=== PATIENT | female | born 1980 | race Caucasian/White ===

== ENCOUNTER 2025-03-11 08:42 | Day surgery (SDC) | payer OTHER ==
[2025-03-10 08:38] LABS: MEAN PLATELET VOLUME 7.6 FL (7.4-10.4); RED CELL DISTRIBUTION WIDTH 11.9 % (11.5-14.5)
[2025-03-10 08:51] LABS: APTT 28 SECONDS (22-32); INR 1.0 INR
[2025-03-10 08:52] LABS: CHOL/HDL RATIO 2.0 (0.00-4.99); CREATININE 0.79 MG/DL (0.40-0.90); LDL CHOLESTEROL 39 MG/DL (50-100); TOTAL CARBON DIOXIDE 24.4 MMOL/L (24-32); eGFR 79 ML/MIN
[~2025-03-11] VITALS: Ht 165.1 cm; Wt 79.5 kg
[2025-03-11] VITALS (9 sets, daily range): BP systolic 83–113; BP diastolic 51–79; PULSE 91–109; RESP 16–20; TEMP 97.4; O2SAT 93–98
[2025-03-11] MEDS ORDERED: CHOL25CA2 PO (10:12)
[2025-03-11] MEDS ORDERED: MULT-1085 PO (10:12)
--- NOTE | 2025-03-11 10:17 | ELECTROCARDIOGRAPH REPORT ---
[facility] Test Date: 2025-03-11 Test Time: 10:14:03 Pat Name: CLAY LIU Department: [facility] Patient ID: [id number] Room: Gender: F Logistics/Shipper: TOÑITO : 1980 Requested By: SUE WHITE Order Number: [id number] Reading MD: Dr. TINO Parker Measurements Intervals [place] Rate: 98 P: 38 PA: 150 QRS: 19 QRSD: 85 T: 32 QT: 346 QTc: 442 Interpretive Statements Sinus rhythm Anterior infarct, old Electronically Signed On 03-12-2025 19:12:[address] TINO Parker Please click the below link to view image of tracing.
[2025-03-11] MEDS ORDERED: midazolam 1 mg/ML 2ml injection ONE ×3 (11:20→13:14)
[2025-03-11] MEDS ORDERED: LIDOcaine 1% (10mg/ml) 2ml vial ONE ×2 (11:20→11:37)
[2025-03-11] MEDS ORDERED: verapamil 2.5 mg/ml inj IV ONE (11:20)
[2025-03-11] MEDS ORDERED: fentaNYL/PF 50MCG/1 ML 2ML syringe ONE (11:21)
[2025-03-11] MEDS ORDERED: heparin 1,000unit/ml 10ml vial 10 ML ONE (11:21)
[2025-03-11] MEDS ORDERED: nitroGLYCERIN 500mcg/5mL D5W 5 ML IV ONE (11:25)
--- NOTE | 2025-03-11 14:26 | CARDIAC CATH REPORT ---
Cardiac Cath Report Providers to CC CC: SUE WHITE MD Procedure Comments: 1. Right Heart Catheterization 2. Selective Coronary Angiography 3. Right Brachial vein access 4. Right Radial artery access Brief History/Indications: 44yo woman with severe symptomatic bicuspid AoV stenosis Techniques: After informed consent was obtained, the patient was brought to the cardiac catheterization laboratory and prepped and draped in usual sterile fashion for left heart catheterization and other procedures mentioned above. The right wrist and right AC fossa were anesthetized with 1% Lidocaine. The right AC IV was exchanged over a wire for an 6fr sheath. The right radial artery accessed via the Seldinger technique after which a 6Fr sheath was placed. The Gerlach was advanced via the right AC sheath to the right atrium, the right ventricle, the pulmonary artery, and wedge position. Through the 6Fr right radial sheath, a TIG was used to engage the left coronary artery and the right coronary artery. At the conclusion of the case the sheath was removed and hemostasis obtained with a VascBand for the radial sheath and manual compression for the brachial sheath. Findings Findings: HEMODYNAMICS: RA: 2 mmHg RV: 26/1, RVEDP 4 mmHg PA: 22/11, mPAP 16 mmHg PCWP: 9 mmHg(V-waves to 13mmHg) TP mmHg DP mmHg Ao: 80/50, MAP 62 mmHg HR: 110 bpm LV: Not obtained due to known severe PA Sat: 78% Ao Sat: 95% CO/CI (Estevan): 10/5.4 PVR: 1 CASTANEDA CORONARY ARTERIES: Rt Dominant LMCA: Luminal Irregularities LAD: Luminal Irregularities D1: Luminal Irregularities D2: Luminal Irregularities LCx: Luminal Irregularities OM1: Luminal Irregularities OM2: Luminal Irregularities RCA: Luminal Irregularities PDA: Luminal Irregularities PL: Luminal Irregularities Results Results: 1. No significant obstructive CAD 2. RRA and RBV access, closed with VascBand and manual compression RECOMMENDATIONS: 1. Agree with referral to CT surgery for evaluation of severe, symptomatic aortic stenosis. BARBY WHITE MD Mar 11, 2025 14:26
[2025-03-14 06:15] LABS: ISTAT HGB MIX 5.8 g/dl (12.0-16.0); ISTAT Hct MIX 17 %PCV (35-45); ISTAT O2 SATURATION MIX VENOUS 78 % (60-80); ISTAT SOURCE BLNK
[2025-03-14 06:16] LABS: ISTAT HGB ART 9.2 g/dl (12.0-16.0); ISTAT Hct ART 27 %PCV (35-45); ISTAT O2 SATURATION ARTERIAL 95 % (95-98); ISTAT SOURCE BLNK
== END 2025-03-11 16:00 | disposition home or self-care (01) ==
LOC: SSTAY O 08:42
PROVIDERS: ATTEND Student in an Organized Health Care Education/Training Program
DX: I35.0 Nonrheumatic aortic (valve) stenosis (principal); I25.2 Old myocardial infarction; Z79.899 Other long term (current) drug therapy; Z88.8 Allergy status to other drugs, medicaments and biological substances
CPT/HCPCS: 36415; 80048; 80061; 82803; 83695; 85014; 85025; 85610; 85730; 93005; 93456; 99152; J1644; J2003; J2250; J3010; J3490; J7030; Q0163; Q9967; 99153; A6258; A6402; C1751; C1894

== ENCOUNTER 2025-03-29 09:08 | Emergency (ER) | payer OTHER ==
[~2025-03-29] VITALS: Ht 165.1 cm; Wt 78.5 kg
[~2025-03-29 09:08] MED LIST: CHOL25CA2 PO; MULT-1085 PO
[2025-03-29 09:22] VITALS: TEMP 97.7
--- NOTE | 2025-03-29 09:38 | ELECTROCARDIOGRAPH REPORT ---
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
[2025-03-29 09:47] LABS: MEAN PLATELET VOLUME 7.6 FL (7.4-10.4); RED CELL DISTRIBUTION WIDTH 12.0 % (11.5-14.5)
--- NOTE | 2025-03-29 09:52 | RADIOLOGY REPORT ---
DI CHEST,SINGLE VIEW, HISTORY: CP COMPARISON: None None TECHNICAL DATA: 1 view of the chest was obtained. FINDINGS: Lines and tubes: None Cardiomediastinal silhouette: normal Pulmonary vasculature: normal Lung expansion: normal Lung airspace: normal Lung interstitium: normal Pleura: normal Pneumothorax: no Bones: Unremarkable Other: no IMPRESSION: No acute intrathoracic abnormality.
[2025-03-29] MEDS: diazepam inj 5 MG/ML inj. IV ONE (09:53)
[2025-03-29 10:00] LABS: CREATININE 0.65 MG/DL (0.40-0.90); PRO BRAIN NATRIURETIC PEPTIDE 1872 PG/ML (0-125); TOTAL CARBON DIOXIDE 23.7 MMOL/L (24-32); eCRCL 79 ML/MIN; eGFR > 90 ML/MIN
--- NOTE | 2025-03-29 10:00 | Physician Documentation ---
History of Present Illness ~ Chief Complaint: Rapid Heartbeat Stated Complaint: IRREG HEART RATE Time Seen by MD: 09:22 OK to notify your PCP?: Yes Source: patient Mode of Arrival: POV Exam Limitations: no limitations HPI Chief Complaint: Anxiety, heart racing Caveat: None Independent Historians: None History of Present Illness: Patient is a 44-year-old woman followed by Dr. Carpenter for aortic stenosis. Patient is scheduled to see a Cardiothoracic surgeon next week for evaluation. Patient comes in complaining of feeling anxious, dizzy/lightheaded in her heart racing for approximately one week. Patient also feels short of breath. Patient denies any chest pain. Patient can not really tell me if this has happened before. Review of systems: All systems were reviewed and are negative except for what is indicated in the history of present illness. Past Medical History: Aortic stenosis, anxiety Past Surgical History: None Social History: No tobacco use, no alcohol use, no drug use Medications: Reviewed as documented Nursing Notes Allergies: Reviewed as documented in Nursing Notes Medication Reconciliation Allergies: Coded Allergies: prochlorperazine (Verified Allergy, Unknown, tongue out of mouth, 03/29/25) Scheduled Cholecalciferol (Vitamin D3) (Vitamin D3), 1 CAP PO DAILY, (Reported) Multivitamin (Multi Vitamin Daily), 1 TAB PO DAILY, (Reported) Review of Systems All Other Systems at this time: Reviewed and Negative ROS Patient denies any other acute symptoms other than above. All other systems are negative Physical Exam Vital Signs: RN Vital Signs have been reviewed: Yes, Temperature: 97.7, Source: Oral, Heart Rate: 122, Respiratory Rate: 17, BP: 121/76, Pulse Oximetry: 99, Weight: 78.500 Oxygen Flow Rate: 0 Pulse Oximetry Reflects: adequate oxygenation Physical Exam General Appearance: Mild distress HEENT: Normal OP, moist oral mucosa, PERRL, EOMI Neck: supple, normal ROM, trachea midline Pulmonary: No respiratory distress, CTA, BS equal Cardiac: RRR, no murmur, rub or gallop, GI: nondistended, soft, nontender, normal bowel sounds, no guarding, no rebound Extremities: normal ROM, no swelling, non-tender Skin: intact, dry, warm, no rashes Neuro: AAOx3, speech is clear, no focal motor weakness Psych: normal affect, good eye contact, no apparent hallucination, normal speech Progress Results/Orders Results/Orders Orders - ADALBERTO ELIZABETH MD Saline Lock (03/29/25 09:23) Oxygen (03/29/25 09:23) Chest,Single View (03/29/25 09:23) Monitor (03/29/25 09:23) Completed Orders - ADALBERTO ELIZABETH MD Cbc/Diff (03/29/25 09:23) BMP (03/29/25 09:23) PBNP (03/29/25 09:23) Electrocardiogram (03/29/25 09:23) Hs Troponin I W Calculations (03/29/25 09:23) Chest,Single View (03/29/25 09:23) Diazepam Inj (Valium Inj) (03/29/25 09:40) Normal Saline 1000ml (0.9% Sodium Chlori (03/29/25 11:00) Lorazepam Tablet (Ativan Tablet) (03/29/25 11:00) Medications Received in ER Medications (Trade) Dose Ordered Sig/Franck Route PRN Reason Start Time Stop Time Status Last Admin Dose Admin (Valium inj) 5 mg ONCE ONCE IV 03/29/25 09:40 03/29/25 09:41 DC 03/29/25 09:53 5 MG (Ativan tablet) 1 mg ONCE ONCE PO 03/29/25 11:00 03/29/25 11:03 DC 03/29/25 11:26 1 MG Vital Signs 03/29/25 03/29/25 03/29/25 03/29/25 09:22 09:47 09:53 11:26 Temp 97.7 Pulse 126 122 Resp 17 17 17 20 B/P (MAP) 114/77 121/76 (91) Pulse Ox 99 99 O2 Flow Rate 0 03/29/25 11:26 Pulse 105 Resp 20 B/P (MAP) 91/61 Pulse Ox 98 Laboratory Tests Test 03/29/25 09:15 White Blood Count 3.1 L Red Blood Count 4.24 Hemoglobin 12.0 Hematocrit 35.4 Mean Corpuscular Volume 83.3 Mean Corpuscular Hemoglobin 28.3 Mean Corpuscular Hemoglobin Concent 33.9 Red Cell Distribution Width 12.0 Platelet Count 170 Mean Platelet Volume 7.6 Neutrophils (%) (Auto) 65.9 Lymphocytes (%) (Auto) 24.7 Monocytes (%) (Auto) 8.9 Eosinophils (%) (Auto) 0.3 Basophils (%) (Auto) 0.2 Neutrophils # (Auto) 2.1 Lymphocytes # (Auto) 0.8 L Monocytes # (Auto) 0.3 Eosinophils # (Auto) 0.0 Basophils # (Auto) 0.0 CBC Comment Sodium Level 139 Potassium Level 4.1 Chloride Level 108 H Carbon Dioxide Level 23.7 L Anion Gap 7 L Blood Urea Nitrogen 15 Creatinine 0.65 Estimated GFR/1.73 m2 > 90 BUN/Creatinine Ratio 23.1 H Glucose Level 157 H Calcium Level 8.5 Troponin I High Sensitivity 10 Pro-B-Type Natriuretic Peptide 1872 H Albumin 3.4 Chemistry Comments Medical Decision Making Additional information obtaine: old records, other (See below) Findings Differential diagnosis includes but is not limited to: Aortic stenosis, anxiety, electrolyte abnormalities, sinus tachycardia, other cardiac dysrhythmia EKG independent interpretation: Performed at 9:12 a.m.. Sinus tachycardia, heart rate 110, LVH, normal axis, normal ST segments Chest x-ray, single view, indication: Dizziness Independent interpretation: Lungs are clear, normal mediastinum, normal cardiac silhouette. No acute cardiopulmonary process. Laboratory data independent interpretation: CBC: Leukopenia with a WBC of 3.1 otherwise unremarkable. CMP: Serum glucose mildly elevated at 157. Troponin: 10 Pro BNP: 1872 Emergency department course/medical decision-making: PATIENT PRESENTS WITH RAPID HEART RATE, DIZZINESS AND FEELING ANXIOUS. Patient is given Valium 5 mg IV. Patient is thought to be suffering from anxiety. Patient states that she was placed on a medication for anxiety by primary care doctor but she does not like how it feels and does not seem to help. Patient is feeling better after the above treatment. 10:56 a.m.: Patient re-evaluated. Patient is feeling better. Patient is stable for discharge. Patient has not been drinking adequate fluids. Patient will be given 500 cc of normal saline and maybe discharged home. There was no evidence of a medical or surgical emergency. Consultation/communicatnsL 10:56 a.m.: Case discussed with Dr. Loretta Carpenter. Patient is scheduled to see Dr. Evans later this month. No other medical problems other than the bicuspid aortic valve. He states that she does suffer from anxiety. Differential Dx:Considerations: Include: other (See above) Differential Dx:Considerations: Include other (See above) Departure Time of Disposition: 11:04 Disposition: 01 HOME / SELF CARE / HOMELESS Impression: Primary Impression: Anxiety Additional Impression: Sinus tachycardia Condition: Improved Discharge Instructions: Generalized Anxiety Disorder, Adult, Managing Anxiety, Adult Additional Instructions: FOLLOW UP WITH YOUR CARDIOTHORACIC SURGEON SCHEDULED. FOLLOW UP WITH YOUR PRIMARY CARE DOCTOR TO CONSIDER CHANGING YOUR MEDICATION FOR ANXIETY. Education Educated: Patient, Family Educated regarding: diagnosis, treatment Signature Scribe Signature: No scribe Attestation: No scribe ADALBERTO ELIZABETH MD Mar 29, 2025 09:59
[2025-03-29 11:26] VITALS: BP 91/61; PULSE 105; RESP 20; O2SAT 98
[2025-03-29] MEDS: normal saline 1000ML IV soln IVB ONE (11:26)
== END 2025-03-29 11:35 | disposition home or self-care (01) ==
LOC: ER 09:09
DX: F41.9 Anxiety disorder, unspecified (principal); R00.0 Tachycardia, unspecified; R42 Dizziness and giddiness
CPT/HCPCS: 36415; 71045; 80048; 83880; 84484; 85025; 93005; 96374; 99285; J3360; J7030

== ENCOUNTER 2025-04-18 05:56 | Inpatient (IN) | payer OTHER ==
[2025-04-14 13:10] VITALS: PULSE 78; RESP 16; O2SAT 98
[2025-04-14 13:46] LABS: MEAN PLATELET VOLUME 7.5 FL (7.4-10.4); PRE OP HEMATOCRIT 34.1 % (35.0-45.0); PRE OP HEMOGLOBIN 11.7 g/dL (12.0-16.0); PRE OP PLATELET COUNT 184 X10'3 (140-440); PRE OP WHITE BLOOD COUNT 4.9 10'3 (4.8-10.8); RED CELL DISTRIBUTION WIDTH 12.2 % (11.5-14.5)
[2025-04-14 13:49] LABS: LEUKOCYTE ESTERASE ,URINE NEGATIVE (Neg); NITRITES, URINE NEGATIVE (Neg); OCCULT BLOOD,URINE NEGATIVE (Neg)
[2025-04-14 13:51] LABS: UA COLLECTION TYPE NON-SPECIFIED
[2025-04-14 14:08] LABS: PRE OP INR 1.0 INR; PRE OP PARTIAL THROMB. TIME 26.0 SECONDS (22-32); PRE OP PROTIME 9.8 SECONDS (9.0-12.0)
[2025-04-14 14:10] LABS: CREATININE 0.74 MG/DL (0.40-0.90); PRE OP ALT 41 U/L (30-65); PRE OP ANION GAP 4 (8-16); PRE OP AST 28 U/L (10-37); PRE OP BILIRUB, TOTAL 0.6 MG/DL (0.0-1.0); PRE OP GLUCOSE 94 MG/DL (70-104); PRE OP POTASSIUM 3.9 MMOL/L (3.4-5.1); PRE OP SODIUM 135 MMOL/L (135-145); TOTAL CARBON DIOXIDE 27.9 MMOL/L (24-32); eGFR 85 ML/MIN
--- NOTE | 2025-04-14 14:19 | RADIOLOGY REPORT ---
DI CHEST,TWO VIEWS, HISTORY: PREOP COMPARISON: DI CHEST,SINGLE VIEW on DOS: 03/29/25 DI CHEST,SINGLE VIEW on DOS: 03/29/25 TECHNICAL DATA: 2 view of the chest was obtained. FINDINGS: Lines and tubes: None Cardiomediastinal silhouette: normal Pulmonary vasculature: normal Lung expansion: normal Lung airspace: normal Lung interstitium: normal Pleura: normal Pneumothorax: no Bones: Unremarkable Other: no IMPRESSION: No acute intrathoracic abnormality.
--- NOTE | 2025-04-14 14:34 | VASCULAR REPORT ---
ULTRASOUND VENOUS MAPPING LOWER EXTREMITIES INDICATION: Preoperative mapping of the superficial veins of bilateral lower extremities. COMPARISON: None TECHNIQUE: Duplex Doppler evaluation of the superficial veins of the right and left lower extremities was performed including color Doppler and spectral/pulsed waveform analysis. FINDINGS: Measurements of the lower extremity superficial veins are provided below. RIGHT GREAT SAPHENOUS VEIN (GSV): 4.3 mm at the proximal thigh, normal compressibility with no mural thickening or thrombosis. 2.3 mm at the mid thigh, normal compressibility with no mural thickening or thrombosis. 2.3 mm at the distal thigh, normal compressibility with no mural thickening or thrombosis. 1.4 mm at the proximal calf, normal compressibility with no mural thickening or thrombosis. 1.4 mm at the mid calf, normal compressibility with no mural thickening or thrombosis. 2.1 mm at the distal calf, normal compressibility with no mural thickening or thrombosis. The GSV is patent on duplex Doppler evaluation. LEFT GREAT SAPHENOUS VEIN (GSV): 4.8 mm at the proximal thigh, normal compressibility with no mural thickening or thrombosis. 3.5 mm at the mid thigh, normal compressibility with no mural thickening or thrombosis. 2.8 mm at the distal thigh, normal compressibility with no mural thickening or thrombosis. 1.5 mm at the proximal calf, normal compressibility with no mural thickening or thrombosis. 2.3 mm at the mid calf, normal compressibility with no mural thickening or thrombosis. 2.9 mm at the distal calf, normal compressibility with no mural thickening or thrombosis. The GSV is patent on duplex Doppler evaluation. IMPRESSION: Lower extremity superficial venous mapping as detailed above.
--- NOTE | 2025-04-15 05:59 | ELECTROCARDIOGRAPH REPORT ---
[facility] Test Date: 2025-04-14 Test Time: 13:44:26 Pat Name: CLAY LIU Department: PRE/OP CARDIOLOGY [id number] Room: Gender: F Pediatric Neuropsychologist: : 1980 Requested By: HIPOLITO CALLE Order Number: [id number] Reading MD: Dr. Ean Carpenter Measurements Intervals [place] Rate: 96 P: 25 NM: 137 QRS: 35 QRSD: 87 T: 37 QT: 346 QTc: 438 Interpretive Statements Sinus rhythm Electronically Signed On 04-15-2025 7:43:[address] Ean Carpenter Please click the below link to view image of tracing.
[2025-04-15 08:01] LABS: ABG BASE EXCESS -1.7 mmol/L (-2.0-3.0); ABG HCO3 21.9 mmol/L (21.0-28.0); ABG OXYGEN SATURATION 97.3 % (94.0-98.0); ABG PCO2 (T) 33.8 mmHg (32.0-45.0); ABG PH (T) 7.430 (7.350-7.450); ABG PO2 (T) 101.5 mmHg (83.0-108.0); ALLEN'S TEST POSITIVE; FCOHb 0.1 % (0.5-1.5); FHHb 2.7 % (0.0-5.0); FIO2 21.0 mmHg/%; FMetHb 0.3 % (0.0-1.5); FO2Hb 96.9 % (94.0-98.0); MODE ROOM AIR; PATIENT TEMPERATURE 37.0; TOTAL HEMOGLOBIN 12.5 G/dl (12.0-16.0)
--- NOTE | 2025-04-15 15:03 | PROCEDURE NOTE - Respiratory ---
Procedure Note-Respiratory Providers to CC Copies To 1: HIPOLITO CALLE III, MD Procedure Name: This is a spirometry study dated April 14, 2025. There was also a room air blood gas obtained from this patient on the same date. Spirometry measurements: Both the vital capacity and the FEV1 are in the lower range of normal. The FEV1 ratio is normal. Some of the flow rate measurements are borderline reduced. Bronchodilator was not administered as part of the study. Conclusion: This study shows very mild abnormality. There is evidence for obstructive ventilatory defect but it is quite mild. We have no previous studies for comparison. It is recommended that the patient completely abstain from cigarette smoking. A blood gas was drawn from this patient while the patient was breathing ambient air. The blood pH is normal. The pCO2 is normal. The room air PO2 is normal. ERIBERTO STARR MD Apr 15, 2025 15:02
[~2025-04-18] VITALS: Ht 165.1 cm; Wt 81.1 kg
[2025-04-18] VITALS (22 sets, daily range): BP systolic 92–138; BP diastolic 47–76; PULSE 87–113; RESP 12–21; TEMP 98–99.5; O2SAT 92–100
[2025-04-18] MEDS: ceFAZolin 2gm/dext,iso 50mL 50 ML IV ONE (05:30)
[~2025-04-18 05:56] MED LIST changes: +Insulin Reg/NS 100units/100mL 100 ML IV SCH; +dextrose 50%-water 50ml dispensing syringe IV PRN; +insulin glargine (Lantus) pen - multi-dose SQ PRN
[2025-04-18] MEDS: VANCOMYCIN/H2O 1.5g/300mL PB 300 ML IV ONE (06:56)
[2025-04-18] MEDS: mupirocin 2% nasal ointment 1gm UD NS ONE (06:56)
[2025-04-18] MEDS: ringers solution, lacted 1,000 ML IV SCH (06:56)
[2025-04-18] MEDS ORDERED: vancomycin 1,000mg inj ONE (06:57)
[2025-04-18] MEDS: metoprolol tartrate 12.5mg (1/2 tablet) PO ONE (07:01)
[2025-04-18] MEDS ORDERED: BUPIVAcaine 0.5% inj/PF 30 ML ONE (07:23)
[2025-04-18] MEDS ORDERED: MIDAZolam 1mg/ml 10ml vial ONE (07:32)
[2025-04-18] MEDS ORDERED: SUfentanil 50mcg/ml 1ml amp IV ONE (07:33)
[2025-04-18] MEDS ORDERED: isoflurane 100ml inhalation liquid IH ONE (08:00)
[2025-04-18] MEDS ORDERED: sodium bicarbonate (8.4%) 1 mEq/ml syringe ONE (08:00)
[2025-04-18] MEDS ORDERED: calcium chloride 100 MG/1 ML inj IV ONE (08:00)
[2025-04-18] MEDS ORDERED: LIDOcaine 2% (20 mg/ml) 5ml cardiac syringe ONE (08:00)
[2025-04-18] MEDS ORDERED: aminocaproic acid 250 MG/1 ML inj. ONE (08:00)
[2025-04-18] MEDS ORDERED: mannitol 12.5gm/50mL VIAL IV ONE (08:00)
[2025-04-18] MEDS ORDERED: potassium Cl 2 mEq/ml inj IV ONE (08:00)
[2025-04-18] MEDS ORDERED: NORepinephrine 1 mg/ml inj IV ONE (08:00)
[2025-04-18] MEDS ORDERED: MAGNESIUM SULFATE 4 MEQ/ML (5gm/10ml) injection ONE (08:00)
[2025-04-18] MEDS ORDERED: albumin (human) 25% 100 ML IV solution IV ONE (08:00)
[2025-04-18] MEDS ORDERED: phenylephrine 10mg/ml inj. ONE ×2 (08:00→09:17)
[2025-04-18] MEDS ORDERED: heparin 1,000 units/ml 10ml inj ONE (08:00)
[2025-04-18] MEDS ORDERED: heparin 10,000 units/1 ML INJ ONE (08:00)
[2025-04-18] MEDS ORDERED: methylPREDNISolone sod succ 1000mg vial ONE (08:00)
[2025-04-18] MEDS: midazolam 1 mg/ML 2ml injection IV ONE ×2 (08:02→09:40)
[2025-04-18 08:36] LABS: ABG BASE EXCESS -2.8 mmol/L (-2.0-3.0); ABG HCO3 21.4 mmol/L (21.0-28.0); ABG OXYGEN SATURATION 99.5 % (94.0-98.0); ABG PCO2 35.5 mmHg (32.0-45.0); ABG PH 7.399 (7.350-7.450); CL (ABG) 108 mmol/L (98-107); FCOHb 0.3 % (0.5-1.5); FHHb 0.5 % (0.0-5.0); FMetHb 0.1 % (0.0-1.5); FO2Hb 99.1 % (94.0-98.0); GLUCOSE (ABG) 90 mg/dl (65-95); IONIZED CA (ABG) 1.16 mmol/L (1.15-1.33); K (ABG) 4.2 mmol/L (3.40-4.50); TOTAL HEMOGLOBIN 11.4 G/dl (12.0-16.0)
[2025-04-18] MEDS: vancomycin 1,000mg inj IVT ONE (08:40)
[2025-04-18] MEDS: BUPIVAcaine 0.5% inj/PF 30 ml vial IJ ONE (08:40)
[2025-04-18 09:05] LABS: ACTIVATED CLOTTING TIME 549.0 SEC (101-148)
[2025-04-18 09:13] LABS: ABG BASE EXCESS -2.2 mmol/L (-2.0-3.0); ABG HCO3 22.8 mmol/L (21.0-28.0); ABG OXYGEN SATURATION 99.3 % (94.0-98.0); ABG PCO2 39.7 mmHg (32.0-45.0); ABG PH 7.377 (7.350-7.450); CL (ABG) 104 mmol/L (98-107); FCOHb 0.3 % (0.5-1.5); FHHb 0.7 % (0.0-5.0); FMetHb 0.0 % (0.0-1.5); FO2Hb 99.0 % (94.0-98.0); GLUCOSE (ABG) 104 mg/dl (65-95); IONIZED CA (ABG) 0.99 mmol/L (1.15-1.33); K (ABG) 5.6 mmol/L (3.40-4.50); TOTAL HEMOGLOBIN 8.0 G/dl (12.0-16.0)
[2025-04-18] MEDS ORDERED: 0.9 % SODIUM CHLORIDE 10 ML VIAL ONE (09:17)
[2025-04-18] MEDS ORDERED: LIDOcaine 2% (20mg/ml) 5ml vial ONE (09:17)
[2025-04-18] MEDS ORDERED: propofol inj 20 ML IV ONE (09:17)
[2025-04-18] MEDS ORDERED: rocuronium 10mg/ml inj IV ONE ×3 (09:17)
[2025-04-18 09:40] LABS: ABG BASE EXCESS -5.5 mmol/L (-2.0-3.0); ABG HCO3 21.0 mmol/L (21.0-28.0); ABG OXYGEN SATURATION 99.4 % (94.0-98.0); ABG PCO2 46.1 mmHg (32.0-45.0); ABG PH 7.277 (7.350-7.450); CL (ABG) 105 mmol/L (98-107); FCOHb 0.3 % (0.5-1.5); FHHb 0.6 % (0.0-5.0); FMetHb 0.1 % (0.0-1.5); FO2Hb 99.0 % (94.0-98.0); GLUCOSE (ABG) 140 mg/dl (65-95); IONIZED CA (ABG) 1.08 mmol/L (1.15-1.33); K (ABG) 5.6 mmol/L (3.40-4.50); TOTAL HEMOGLOBIN 8.5 G/dl (12.0-16.0)
[2025-04-18] MEDS ORDERED: fentaNYL/PF 50MCG/1 ML 2ML syringe IV PRN (09:40)
[2025-04-18] MEDS ORDERED: FENTANYL-0.9 % NACL/PF 100 ML IV SCH (09:40)
[2025-04-18] MEDS ORDERED: midazolam 100mg in NS 100ml 100 ML IV SCH (09:40)
[2025-04-18 09:55] LABS: ACTIVATED CLOTTING TIME 770.0 SEC (101-148)
[2025-04-18 10:11] LABS: ABG BASE EXCESS 1.3 mmol/L (-2.0-3.0); ABG HCO3 25.4 mmol/L (21.0-28.0); ABG OXYGEN SATURATION 99.5 % (94.0-98.0); ABG PCO2 37.8 mmHg (32.0-45.0); ABG PH 7.445 (7.350-7.450); CL (ABG) 106 mmol/L (98-107); FCOHb 0.4 % (0.5-1.5); FHHb 0.5 % (0.0-5.0); FMetHb 0.3 % (0.0-1.5); FO2Hb 98.8 % (94.0-98.0); GLUCOSE (ABG) 174 mg/dl (65-95); IONIZED CA (ABG) 1.26 mmol/L (1.15-1.33); K (ABG) 4.5 mmol/L (3.40-4.50); TOTAL HEMOGLOBIN 7.9 G/dl (12.0-16.0)
[2025-04-18 10:14] LABS: ACTIVATED CLOTTING TIME 118 SEC (101-148)
[2025-04-18] MEDS ORDERED: esmolol inj. 10 ML IV ONE (10:14)
[2025-04-18] MEDS ORDERED: dexamethasone sod phosphate 4mg/ml inj. ONE (10:28)
[2025-04-18] MEDS ORDERED: ondansetron/PF 4mg/2ml inj ONE (10:28)
[2025-04-18] MEDS ORDERED: mineral oil 133ml enema RC PRN (10:35)
[2025-04-18] MEDS ORDERED: insulin glargine (Lantus) pen - multi-dose SQ PRN (10:35)
[2025-04-18] MEDS ORDERED: magnesium hydroxide 30ml (MOM) UD suspension PO PRN (10:35)
[2025-04-18] MEDS ORDERED: magnesium sulf-water 4G/100mL 100 ML IV PRN (10:35)
[2025-04-18] MEDS ORDERED: DOPamine 400mg/D5W 250ml 250 ML IV PRN (10:35)
[2025-04-18] MEDS ORDERED: NORepinephrine 8mg/ 250ml NS 250 ML IV PRN (10:35)
[2025-04-18] MEDS ORDERED: potassium Cl 40MEQ/1/2NS 520ml 520 ML IV PRN (10:35)
[2025-04-18] MEDS ORDERED: potassium Cl 40MEQ/270ML bag 250 ML IV PRN (10:35)
[2025-04-18] MEDS ORDERED: potassium Cl 20 mEq SR tablet PO PRN (10:35)
[2025-04-18] MEDS ORDERED: dextrose 50%-water 50ml dispensing syringe IV PRN (10:35)
[2025-04-18] MEDS ORDERED: potassium CL 10mEq/100ml bag 100 ML IV PRN (10:35)
[2025-04-18] MEDS ORDERED: SODIUM PHOSPHATE IN D5W 260 ML IV PRN (10:35)
[2025-04-18] MEDS ORDERED: sodium phos 15mmol/D5 255mL 255 ML IV PRN (10:35)
[2025-04-18] MEDS ORDERED: bisacodyl 10mg suppository rectal RC PRN (10:35)
--- NOTE | 2025-04-18 10:42 | OPERATIVE REPORT ---
Operative Report Operative Report Cardiovascular surgery operative report 18 April 2025 Preoperative diagnosis: Severe aortic stenosis, congenitally bicuspid valve Postop diagnosis: Same Procedure: Aortic valve replacement using a 23 mm Saint Daniel mechanical aortic valve prosthesis via limited sternotomy. Surgeon: Dr. Home Bates speech language pathologist assistant: Dr. Asif Aiken and Darrius Sams PA-C Anesthesia: General via endotracheal tube Dr. Nagy Complications: None EBL: 200 mL Procedure: The patient is taken to the operating room placed in supine position. Following the induction of general oral endotracheal anesthesia and the placement of appropriate lines the chest, abdomen and bilateral lower extremities were prepped and draped sterilely. An upper sternotomy was perf ormed Gavi it off in the right 3rd interspace. The pericardium was opened in midline and suspended. The patient was then systemically heparinized and single aortic and dual stage right atrial cannula were then placed. After ensuring an ACT of greater than 300 seconds cardiopulmonary bypass was instituted. The aorta was crossclamped and the heart was arrested with cold blood [place] cardioplegia delivered antegrade through the root. The aorta was opened transversely well above the right coronary orifice of the valve was inspected. As noted it was a bicuspid valve with severe calcification and fusion. The leaflets were excised and the annulus was debrided free of calcium. The annulus was then sized and a 23 mm Saint Daniel mechanical aortic valve prosthesis was chosen. This was implanted into the annulus using interrupted horizontal mattress sutures of pledgeted 2-0 Ethibond, placing the pledgets on the aortic aspect in everting fashion. Valve was seated and the sutures were tied to complete the implant. The leaflet mobility was very free. There was no subvalvular impingement. The aorta was copiously irrigated with cold saline solution. The aortotomy was then closed with a everting running 4-0 Prolene suture. A thin coating of BioGlue was placed over the suture line for hemostatic purposes. A 32 Luxembourgish straight chest tube was placed to the anterior mediastinum. It was secured to skin with 1. Silk. Ventilation was then resumed. The patient was allowed to begin ejecting to a pressure of 80-90 mmHg. Transesophageal echocardiography was used to confirm adequacy of de-airing. At that point she was weaned from cardiopulmonary bypass and decannulated in standard fashion. With a blood pressure approximately 150mmHg there was no significant aortic insufficiency or perivalvular leaks. Protamine solution was administered to reverse heparinization and careful hemostasis was achieved throughout the mediastinum. Temporary pacing wires placed the anterior surface of the right ventricle. The chest was then closed by reapproximating the sternum with interrupted [id number] and simple 7. Stainless steel wires. The midline fascia, subcutaneous tissue and skin were closed in layers. Sterile dressings were applied and the chest tube was attached to water-seal. The patient was then returned to the ICU in critical but stable condition, having tolerated the procedure satisfactorily. There were no complications. Sponge, needle and instrument counts were correct x2 at the end of the case. Darrius Sams PA-C was present for and assisted throughout the entire procedure. HOME BATES III, MD Apr 18, 2025 10:42
--- NOTE | 2025-04-18 11:04 | ELECTROCARDIOGRAPH REPORT ---
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 TINO Parker Measurements Intervals [place] Rate: 103 P: 66 NM: 164 QRS: 19 QRSD: 72 T: 52 QT: 345 QTc: 452 Interpretive Statements Sinus tachycardia Probable left atrial enlargement Probable anterior infarct, old Electronically Signed On 04-18-2025 17:49:[address] TINO Parker Please click the below link to view image of tracing.
[2025-04-18] MEDS: morphine 4 MG/ML inj SYRINge IV PRN (11:09)
[2025-04-18] MEDS: Insulin Reg/NS 100units/100mL 100 ML IV SCH (11:11)
[2025-04-18] MEDS: niCARDipine-NS 40mg/200ml IVPB 200 ML IV PRN (11:12)
[2025-04-18 11:14] LABS: MEAN PLATELET VOLUME 7.5 FL (7.4-10.4); RED CELL DISTRIBUTION WIDTH 12.1 % (11.5-14.5)
[2025-04-18 11:30] LABS: APTT 28 SECONDS (22-32); INR 1.1 INR
[2025-04-18 11:30] LABS: ABG BASE EXCESS -2.1 mmol/L (-2.0-3.0); ABG HCO3 23.2 mmol/L (21.0-28.0); ABG OXYGEN SATURATION 99.6 % (94.0-98.0); ABG PCO2 (T) 41.5 mmHg (32.0-45.0); ABG PH (T) 7.364 (7.350-7.450); ABG PO2 (T) 337.3 mmHg (83.0-108.0); FCOHb 0.4 % (0.5-1.5); FHHb 0.4 % (0.0-5.0); FIO2 100.0 mmHg/%; FMetHb 0.3 % (0.0-1.5); FO2Hb 98.9 % (94.0-98.0); MODE VENT - SIMV; PATIENT TEMPERATURE 36.9; PEEP 5 cm H2O; RESPIRATORY RATE 12 b/min; TIDAL VOLUME 500 mL; TOTAL HEMOGLOBIN 10.8 G/dl (12.0-16.0)
--- NOTE | 2025-04-18 11:37 | RADIOLOGY REPORT ---
EXAM: DI CHEST,SINGLE VIEW Indication: POST OP Technique: Single frontal view of the chest was obtained Comparison: DI CHEST,TWO VIEWS on DOS: 04/14/25, DI CHEST,SINGLE VIEW on DOS: 03/29/25 FINDINGS: Lines and Tubes: Endotracheal tube is at the level of the melo. Recommend retraction. Enteric tube tip projects over the expected region of the stomach. Right swan-Isidoro catheter with tip projecting over the right main pulmonary artery Lungs: Right ill-defined lower lung opacity. Pleura: No effusion. No pneumothorax. Cardiomediastinal contours: Unremarkable Bones: No acute osseous abnormality. IMPRESSION: Endotracheal tube is at the level of the melo. Recommend retraction. Other lines and tubes as above. Right ill-defined lower lung opacity.
[2025-04-18 11:47] LABS: CREATININE 0.51 MG/DL (0.40-0.90); PHOSPHORUS 4.2 MG/DL (2.3-4.5); TOTAL CARBON DIOXIDE 27.1 MMOL/L (24-32); eCRCL 125 ML/MIN; eGFR > 90 ML/MIN
[2025-04-18] MEDS: HYDROcodone/acetaminophen 10/325mg tab PO PRN ×2 (14:24→18:59)
[2025-04-18] MEDS: albumin (Human) 5% 250ml 250 ML IV PRN (14:32)
[2025-04-18] MEDS: ceFAZolin/D5W- 1GM premix 50 ML IV SCH (15:48)
[2025-04-18] MEDS: ondansetron/PF 4mg/2ml inj IV PRN (17:08)
[2025-04-18 17:16] LABS: MEAN PLATELET VOLUME 8.4 FL (7.4-10.4); RED CELL DISTRIBUTION WIDTH 12.2 % (11.5-14.5)
--- NOTE | 2025-04-18 17:35 | CARDIOLOGY REPORT ---
APPROVED REPORT EXAM: Intraoperative transesophageal 2D, 3D spectral and color flow Doppler echocardiogram. Study contains pre- and post-op images. Patient Location: CVOR Blood Pressure: 95/57 mmHg Heart Rate: 80's bpm Rhythm: SINUS Indications AORTIC STENOSIS 23 MM TRAVIS REGENT MECHANICAL AVR PAMELA PROBE PASSED BY: Alessandro ANNE MD Windows Support Engineer: Isis Carpenter MD / CV SURGEON: Miguel CALLE Previous echo: CVC EF 65%, CALEB: 0.85, PK V: 551, GRAD: 122/82, trMR, ASC AO 3.98 LEFT VENTRICLE PRE: Normal LV size and wall thickness. Overall systolic function is normal. LVEF is 65-70%. POST-OP: Unchanged. RIGHT VENTRICLE PRE: RV is mildly dilated with normal function. POST-OP: Unchanged. ATRIA PRE: The left atrium size is normal. Left atrial appendage is visualized in multiple planes and appears normal without debris. POST-OP: Unchanged. AORTIC VALVE PRE: Bucuspid AV appears severely sclerotic with severe stenosis. CALEB: 0.9 cmsq; Pkv: 451 m/sec; Gradients: 81/ 53 mmHG. Trace insufficiency. POST-OP: 23 mm Abbot Wilson Mechanical AVR appears well seated with no PVL. CALEB: 2.7 cm/sq. PkV: 239 m/s Grad: 23/13. MITRAL VALVE PRE: Mild MV annular calcification without stenosis. Trace regurgitation. POST- OP: Unchanged. TRICUSPID VALVE PRE: TV appears structurally normal with trace regurgitation. POST-OP: Unchanged. PULMONIC VALVE PRE: Normal PV without stenosis, physiologic insufficiency. [place]-Isidoro catheter in the right heart across the pulmonic valve. POST-OP: Unchanged. GREAT VESSELS PRE: The aortic root is normal in size. AV Annulus: 2.3 cm; STJ: 2.7 cm; Ascending AO: 3.7 cm. The ascending aorta is upper limit normal in size. POST- OP: Unchanged. PERICARDIUM PRE: Normal pericardium. No effusion. POST-OP: Unchanged. CONCLUSION PRE: Normal LV size and wall thickness. Overall systolic function is normal. PRE: Normal LV size and wall thickness. Overall systolic function is normal. LVEF is 65-70%. POST-OP: Unchanged. PRE: RV is mildly dilated with normal function. POST-OP: Unchanged. PRE: The left atrium size is normal. Left atrial appendage is visualized in multiple planes and appears normal without debris. POST-OP: Unchanged. PRE: Bicuspid AV appears severely sclerotic with severe stenosis. CALEB: 0.9 cmsq; Pkv: 451 m/sec; Gradients: 81/ 53 mmHG. Trace insufficiency. POST-OP: 23 mm Abbot Wilson Mechanical AVR appears well seated with no PVL. CALEB: 2.7 cm/sq. PkV: 239 m/s Grad: 23/13. PRE: Mild MV annular calcification without stenosis. Trace regurgitation. POST-OP: Unchanged. PRE: TV appears structurally normal with trace regurgitation. POST-OP: Unchanged. PRE: The aortic root is normal in size. AV Annulus: 2.3 cm; STJ: 2.7 cm; Ascending AO: 3.7 cm. The ascending aorta is upper limit normal in size. POST-OP: Unchanged. PRE: Normal pericardium. No effusion. POST-OP: Unchanged. Conclusion PRE: Normal LV size and wall thickness. Overall systolic function is normal. PRE: Normal LV size and wall thickness. Overall systolic function is normal. LVEF is 65-70%. POST-OP: Unchanged. PRE: RV is mildly dilated with normal function. POST-OP: Unchanged. PRE: The left atrium size is normal. Left atrial appendage is visualized in multiple planes and appears normal without debris. POST-OP: Unchanged. PRE: Bicuspid AV appears severely sclerotic with severe stenosis. CALEB: 0.9 cmsq; Pkv: 451 m/sec; Gradients: 81/ 53 mmHG. Trace insufficiency. POST-OP: 23 mm Abbot Wilson Mechanical AVR appears well seated with no PVL. CALEB: 2.7 cm/sq. PkV: 239 m/s Grad: 23/13. PRE: Mild MV annular calcification without stenosis. Trace regurgitation. POST- OP: Unchanged. PRE: TV appears structurally normal with trace regurgitation. POST-OP: Unchanged. PRE: The aortic root is normal in size. AV Annulus: 2.3 cm; STJ: 2.7 cm; Ascending AO: 3.7 cm. The ascending aorta is upper limit normal in size. POST- OP: Unchanged. PRE: Normal pericardium. No effusion. POST-OP: Unchanged.
[2025-04-18 17:36] LABS: CREATININE 1.10 MG/DL (0.40-0.90); PHOSPHORUS 4.7 MG/DL (2.3-4.5); TOTAL CARBON DIOXIDE 23.5 MMOL/L (24-32); eCRCL 58 ML/MIN; eGFR 54 ML/MIN
[2025-04-18] MEDS: magnesium sulf-water 2g/50mL 50 ML IV PRN (17:43)
[2025-04-18] MEDS: potassium Cl 20mEq/100mL bag 100 ML IV PRN (17:44)
[2025-04-18] MEDS: vancomycin/NS 1 GM ADD-VANTAGE 200 ML IV SCH (18:59)
[2025-04-18] MEDS: mupirocin 2% nasal ointment 1gm UD NS SCH (19:00)
[2025-04-18] MEDS: albumin (Human) 5% 250ml 250 ML IV ONE (21:16)
[2025-04-19] VITALS (20 sets, daily range): BP systolic 87–109; BP diastolic 45–60; PULSE 75–114; RESP 13–21; TEMP 96–98.3; O2SAT 92–99
[2025-04-19 02:30] LABS: MEAN PLATELET VOLUME 8.2 FL (7.4-10.4); RED CELL DISTRIBUTION WIDTH 12.3 % (11.5-14.5)
[2025-04-19 02:51] LABS: CREATININE 0.77 MG/DL (0.40-0.90); PHOSPHORUS 4.7 MG/DL (2.3-4.5); TOTAL CARBON DIOXIDE 24.7 MMOL/L (24-32); eCRCL 83 ML/MIN; eGFR 81 ML/MIN
--- NOTE | 2025-04-19 06:01 | RADIOLOGY REPORT ---
CHEST RADIOGRAPH Indication: POST OP Technique: Single frontal view of the chest was obtained COMPARISON: DI CHEST,SINGLE VIEW on DOS: 04/18/25, DI CHEST,TWO VIEWS on DOS: 04/14/25, DI CHEST,SINGLE VIEW on DOS: 03/29/25 FINDINGS: Lines and Tubes: Median sternotomy. Mediastinal drain in satisfactory position. Right central venous catheter in satisfactory position. Lungs: Right lower lobe airspace disease. Pleura: No effusion.No pneumothorax. Cardiomediastinal contours: Unremarkable Bones: Unremarkable IMPRESSION: Lines and tubes in satisfactory position. No significant interval change.
[2025-04-19 08:01] LABS: ABG PO2 444.0 mmHg (83.0-108.0)
[2025-04-19 08:01] LABS: ABG PO2 416.5 mmHg (83.0-108.0)
[2025-04-19 08:01] LABS: ABG PO2 436.9 mmHg (83.0-108.0)
[2025-04-19 08:02] LABS: ABG PO2 353.1 mmHg (83.0-108.0)
[2025-04-19] MEDS: metoprolol tartrate 12.5mg (1/2 tablet) PO SCH (08:12)
--- NOTE | 2025-04-19 08:28 | PROGRESS NOTE ---
Progress Note CV Providers to CC ~ Antibiotics Ordered?: No Subjective Subjective S/P AVR POD # 1. Alert, up to chair. Has been ambulating. Requesting non- narotic pain Rx. Objective Vitals Vital Signs Date Time Temp Pulse Resp B/P (MAP) Pulse Ox O2 Delivery O2 Flow Rate FiO2 04/19/25 08:12 113 04/19/25 08:00 18 Nasal Cannula 2.0 04/19/25 08:00 99.5 109/59 (76) 93 04/18/25 13:30 32 Lab Results: 04/19/25 0205 04/19/25 0205 Objective Lungs - mildly decreased at bases, Hgb 7.8 Heart - RRR, a bit tachy at 113. Just about to rec'v B eugenio. Abd/Extr - OK Incisions - CDI Coagulation Studies Laboratory Tests Test 04/18/25 10:55 04/18/25 11:19 Prothrombin Time 11.4 SECONDS (9.0-12.0) INR International Normalized Ratio 1.1 INR Activated Partial Thromboplast Time 28 SECONDS (22-32) Coagulation Comments Heparin Level (COAG) 0 MG/KG Calculated Heparin Req (Hep Assay) 80913 UNITS Calculated Protamine Req (Hep Assay 0 MG Activated Clotting Time 118 SEC (101-148) Cardiac Rhythm: Sinus Rhythm, Sinus Tachycardia Problem\Assessment\Plan Additional Plan POD # 1 SR/ST [place] and art line out. Start B eugenio. To PCU later today. OK for Toradol Will begin coumadiin Sepsis Screening Reassessment Date: Apr 19, 2025 Supervising Co-signing Provider: PADMAJA Novoa Apr 19, 2025 08:28
[2025-04-19] MEDS ORDERED: potassium Cl 40MEQ/270ML bag 250 ML IV PRN (08:30)
[2025-04-19] MEDS ORDERED: potassium Cl 40MEQ/1/2NS 520ml 520 ML IV PRN (08:30)
[2025-04-19] MEDS ORDERED: potassium CL 10mEq/100ml bag 100 ML IV PRN (08:30)
[2025-04-19] MEDS ORDERED: potassium Cl 20 mEq SR tablet PO PRN (08:30)
[2025-04-19] MEDS ORDERED: potassium Cl 20mEq/100mL bag 100 ML IV PRN (08:30)
[2025-04-19] MEDS ORDERED: magnesium sulf-water 2g/50mL 50 ML IV PRN (08:30)
[2025-04-19] MEDS ORDERED: magnesium sulf-water 4G/100mL 100 ML IV PRN (08:30)
[2025-04-19] MEDS: ketorolac trometh 15mg/ml vial 15 MG/ML ML IV SCH ×2 (10:20→15:31)
--- NOTE | 2025-04-19 11:40 | PROGRESS NOTE ---
Progress Note CV Providers to CC ~ Antibiotics Ordered?: No Objective Vitals Vital Signs Date Time Temp Pulse Resp B/P (MAP) Pulse Ox O2 Delivery O2 Flow Rate FiO2 04/19/25 11:00 97 21 94/55 (68) 94 Room Air 04/19/25 09:00 99.5 04/19/25 08:00 2.0 04/18/25 13:30 32 Lab Results: 04/19/25 0205 04/19/25 0205 Coagulation Studies Laboratory Tests Test 04/18/25 10:55 04/18/25 11:19 Prothrombin Time 11.4 SECONDS (9.0-12.0) INR International Normalized Ratio 1.1 INR Activated Partial Thromboplast Time 28 SECONDS (22-32) Coagulation Comments Heparin Level (COAG) 0 MG/KG Calculated Heparin Req (Hep Assay) 78047 UNITS Calculated Protamine Req (Hep Assay 0 MG Activated Clotting Time 118 SEC (101-148) Cardiac Rhythm: Sinus Rhythm Problem\Assessment\Plan Additional Plan CT output minimal and serous DC Drain. OK to DC [facility] Supervising Co-signing Provider: PADMAJA Novoa Apr 19, 2025 11:40
[2025-04-19] MEDS ORDERED: mineral oil/petrolatum ophthal oint EACHEYE SCH (14:00)
[2025-04-19] MEDS ORDERED: ketorolac trometh 15mg/ml vial 15 MG/ML ML IV SCH (14:00)
--- NOTE | 2025-04-19 17:05 | PATHOLOGY REPORT ---
[facility] [address] [place] [address] SURGICAL PATHOLOGY REPORT CaseNumber: [id number] Surgeon:Home Bates PA-C CLINICAL INFORMATION CLINICAL INFORMATION: Not provided. DIAGNOSIS DIAGNOSIS: HEART, AORTIC VALVE; REPLACEMENT - FIBROSIS AND CALCIFICATION CONSISTENT WITH AORTIC STENOSIS. MICROSCOPIC DESCRIPTION MICROSCOPIC DESCRIPTION: Not performed. (st) GROSS DESCRIPTION GROSS DESCRIPTION: Received in a container of formalin labeled with the patient's name, number, and "aortic valve leaflets" is a 3 x 3 x 1 cm aggregate of moderately calcified aortic valve leaflets. No perforations or vegetations are identified. No sections. (meb) Electronically signed by: Dilip Clay M.D. 04/19/2025 4:34:00 PM
[2025-04-19] MEDS: metoclopramide 5 mg/ml inj IV PRN (18:53)
[2025-04-19] MEDS: magnesium Cl slow-release 64mg tablet PO SCH (19:34)
[2025-04-19] MEDS: warfarin 5mg tablet PO ONE (21:56)
[2025-04-20] VITALS (9 sets, daily range): BP systolic 85–115; BP diastolic 45–63; PULSE 90–116; RESP 12–21; TEMP 97.3–98.8; O2SAT 92–98
[2025-04-20 06:35] LABS: MEAN PLATELET VOLUME 8.7 FL (7.4-10.4); RED CELL DISTRIBUTION WIDTH 12.7 % (11.5-14.5)
[2025-04-20 06:37] LABS: INR 1.0 INR
[2025-04-20 06:58] LABS: CREATININE 2.01 MG/DL (0.40-0.90); TOTAL CARBON DIOXIDE 22.5 MMOL/L (24-32); eCRCL 32 ML/MIN; eGFR 27 ML/MIN
--- NOTE | 2025-04-20 07:15 | RADIOLOGY REPORT ---
EXAM: DI CHEST,SINGLE VIEW HISTORY: POST OP COMPARISON: DI CHEST,SINGLE VIEW on DOS: 04/19/25, DI CHEST,SINGLE VIEW on DOS: 04/18/25, DI CHEST,SINGLE VIEW on DOS: 03/29/25 TECHNIQUE: Portable upright AP view of the chest was performed. FINDINGS: There has been interval removal of the right IJ central line. Sternal wires, aortic valve replacement, and mediastinal drain are re-identified. There is increased opacity in the right lung base now partially obscuring the right hemidiaphragm. No pneumothorax. The heart is borderline enlarged. IMPRESSION: 1. Mild worsening of right lower lobe pneumonia. 2. Interval removal of right IJ central line. 3. Postoperative changes of the heart.
[2025-04-20] MEDS: pantoprazole 40mg Tablet.DR PO SCH (07:29)
--- NOTE | 2025-04-20 09:00 | PROGRESS NOTE ---
Progress Note CV Providers to CC ~ Antibiotics Ordered?: No Subjective Subjective S/P AVR with mechanical valve POD # 2. She is alert, up walking independently. Pain is better managed. Toradol was discontinued d/t elevated creat. She states she is urinating frequently but has not been saving urine. Objective Vitals Vital Signs Date Time Temp Pulse Resp B/P (MAP) Pulse Ox O2 Delivery O2 Flow Rate FiO2 04/20/25 08:12 22 04/20/25 02:00 98.8 90 106/53 (70) 98 Room Air 04/19/25 19:01 0 21 Lab Results: 04/20/25 0542 04/20/25 0542 Objective Lungs - mildly diminished R base Heart - RRR, SR/ST Abd/Extr - OK Incisions - CDI She is not orthostatic. Coagulation Studies Laboratory Tests Test 04/18/25 10:55 04/18/25 11:19 04/20/25 05:42 Activated Partial Thromboplast Time 28 SECONDS (22-32) Heparin Level (COAG) 0 MG/KG Calculated Heparin Req (Hep Assay) 03830 UNITS Calculated Protamine Req (Hep Assay 0 MG Activated Clotting Time 118 SEC (101-148) Prothrombin Time 10.3 SECONDS (9.0-12.0) INR International Normalized Ratio 1.0 INR Coagulation Comments Cardiac Rhythm: Sinus Rhythm Problem\Assessment\Plan Additional Plan POD # 2 She is not orthostatic. Will continue B eugenio. Toradol has been stopped. Repeat creat at 1200. Hgb uptrending. INR 1.0 Continue coumadin. Will add heparin. Sepsis Screening Reassessment Date: Apr 20, 2025 Supervising Co-signing Provider: PADMAJA Doyle Apr 20, 2025 09:00
[2025-04-20 12:17] LABS: CREATININE 1.74 MG/DL (0.40-0.90); TOTAL CARBON DIOXIDE 22.9 MMOL/L (24-32); eCRCL 37 ML/MIN; eGFR 32 ML/MIN
[2025-04-20] MEDS: heparin, porcine 5000 units/ml vial SQ SCH (17:52)
[2025-04-20] MEDS: potassium Cl 20 mEq SR tablet PO PRN (18:57)
[2025-04-20] MEDS: warfarin 5mg tablet PO ONE (20:51)
[2025-04-20] MEDS: midodrine 5mg tablet PO ONE (21:05)
[2025-04-21] VITALS (8 sets, daily range): BP systolic 84–105; BP diastolic 37–61; PULSE 87–104; RESP 12–19; TEMP 97.1–97.8; O2SAT 92–99
--- NOTE | 2025-04-21 07:01 | RADIOLOGY REPORT ---
CHEST RADIOGRAPH Indication: POST OP Technique: Single frontal view of the chest was obtained COMPARISON: DI CHEST,SINGLE VIEW on DOS: 04/20/25, DI CHEST,SINGLE VIEW on DOS: 04/19/25, DI CHEST,SINGLE VIEW on DOS: 04/18/25, DI CHEST,TWO VIEWS on DOS: 04/14/25, DI CHEST,SINGLE VIEW on DOS: 03/29/25 FINDINGS: Lines and Tubes: None Lungs: Unchanged right lower lobe airspace disease. Pleura: No effusion. No pneumothorax. Cardiomediastinal contours: Unchanged cardiomegaly. Median sternotomy. Bones: Unremarkable IMPRESSION: Unchanged right lower lobe airspace disease.
[2025-04-21 07:07] LABS: MEAN PLATELET VOLUME 8.7 FL (7.4-10.4); RED CELL DISTRIBUTION WIDTH 12.6 % (11.5-14.5)
[2025-04-21 07:13] LABS: INR 1.2 INR
[2025-04-21 07:15] LABS: CREATININE 1.11 MG/DL (0.40-0.90); TOTAL CARBON DIOXIDE 23.5 MMOL/L (24-32); eCRCL 58 ML/MIN; eGFR 53 ML/MIN
--- NOTE | 2025-04-21 08:10 | PROGRESS NOTE ---
Progress Note CV Providers to CC ~ Antibiotics Ordered?: No Subjective Subjective S/P AVR via mini-sternotomy POD # 3. She is alert, ambulating on her own. Says she showered and coughed up quite a bit of mucous. CXR showed some RLL airspace dz. Objective Vitals Vital Signs Date Time Temp Pulse Resp B/P (MAP) Pulse Ox O2 Delivery O2 Flow Rate FiO2 04/21/25 03:30 97.7 92 14 88/48 (61) 92 04/20/25 20:00 Room Air 04/19/25 19:01 0 21 Lab Results: 04/21/25 0636 04/21/25 0636 Objective Lungs - a few coarse BS R, clearing with cough Heart - RRR, SR Abd/Extr - OK Incisions - CDI Coagulation Studies Laboratory Tests Test 04/18/25 10:55 04/18/25 11:19 04/21/25 06:36 Activated Partial Thromboplast Time 28 SECONDS (22-32) Heparin Level (COAG) 0 MG/KG Calculated Heparin Req (Hep Assay) 87871 UNITS Calculated Protamine Req (Hep Assay 0 MG Activated Clotting Time 118 SEC (101-148) Prothrombin Time 12.3 SECONDS (9.0-12.0) H INR International Normalized Ratio 1.2 INR Coagulation Comments Cardiac Rhythm: Sinus Rhythm Problem\Assessment\Plan Additional Plan POD # 3 Creat downtrending. Na+ normalized. Acute blood loss anemia, stable + BM's INR 1.2 7.5 Coumadin tonight. Continue Heparin. Continue rehab/ ambulation. Sepsis Screening Reassessment Date: Apr 21, 2025 Supervising Co-signing Provider: PADMAJA Doyle Apr 21, 2025 08:10
[2025-04-21] MEDS: midodrine 5mg tablet PO SCH (12:43)
[2025-04-21] MEDS: warfarin 7.5mg tablet PO ONE (20:50)
[2025-04-22 02:00] VITALS: BP 96/51; PULSE 85; RESP 18; TEMP 97.2; O2SAT 98
[2025-04-22 06:00] VITALS: BP 116/68; PULSE 95; RESP 20; TEMP 98.5; O2SAT 100
[2025-04-22 07:37] LABS: MEAN PLATELET VOLUME 8.8 FL (7.4-10.4); RED CELL DISTRIBUTION WIDTH 12.5 % (11.5-14.5)
[2025-04-22 07:44] LABS: INR 1.6 INR
[2025-04-22 07:50] LABS: CREATININE 0.74 MG/DL (0.40-0.90); TOTAL CARBON DIOXIDE 23.6 MMOL/L (24-32); eCRCL 86 ML/MIN; eGFR 85 ML/MIN
[2025-04-22 08:00] VITALS: RESP 20; O2SAT 100
--- NOTE | 2025-04-22 08:09 | PROGRESS NOTE ---
Progress Note CV Providers to CC ~ Antibiotics Ordered?: No Subjective Subjective S/P AVR with 23 mechanical valve via mini-sternotomy POD # 4. Alert and in NAD, ambulating on her own. She remains on room air. Objective Vitals Vital Signs Date Time Temp Pulse Resp B/P (MAP) Pulse Ox O2 Delivery O2 Flow Rate FiO2 04/22/25 06:00 98.5 95 20 116/68 (84) 100 Room Air 04/19/25 19:01 0 21 Lab Results: 04/22/25 0642 04/22/25 0642 Objective Lungs - fairly clear. CXR shows some mild edema Heart - RRR, SR Abd/Extr - OK, tr edema incisions - CDI Coagulation Studies Laboratory Tests Test 04/18/25 10:55 04/18/25 11:19 04/22/25 06:42 Activated Partial Thromboplast Time 28 SECONDS (22-32) Heparin Level (COAG) 0 MG/KG Calculated Heparin Req (Hep Assay) 43041 UNITS Calculated Protamine Req (Hep Assay 0 MG Activated Clotting Time 118 SEC (101-148) Prothrombin Time 15.8 SECONDS (9.0-12.0) H INR International Normalized Ratio 1.6 INR Coagulation Comments Cardiac Rhythm: Sinus Rhythm Problem\Assessment\Plan Additional Plan POD # 4 SR BP improved on Midodrine. INR 1.6 Continue coumadin. Likely home in AM. Supervising MD Co-signing Provider: PADMAJA Doyle Apr 22, 2025 08:09
--- NOTE | 2025-04-22 08:11 | RADIOLOGY REPORT ---
CHEST RADIOGRAPH Indication: ET Tube PLacement Technique: Single frontal view of the chest was obtained Comparison: DI CHEST,SINGLE VIEW on DOS: 04/21/25, DI CHEST,SINGLE VIEW on DOS: 04/20/25, DI CHEST,SINGLE VIEW on DOS: 04/19/25, DI CHEST,SINGLE VIEW on DOS: 04/18/25, DI CHEST,TWO VIEWS on DOS: 04/14/25 FINDINGS: Lines and Tubes: No endotracheal tube is visualized. Lungs: No focal consolidation. Pleura: Small bilateral pleural effusions. No pneumothorax. Cardiomediastinal contours: Unremarkable Bones: No acute osseous abnormality. IMPRESSION: No endotracheal tube is visualized. Small bilateral pleural effusions.
[2025-04-22] MEDS ORDERED: WARF-65 PO ×2 (08:13→08:41)
[2025-04-22] MEDS ORDERED: LOP12.5T PO (08:13)
[2025-04-22] MEDS ORDERED: HYDR-3972 PO (08:13)
[2025-04-22] MEDS ORDERED: ASPI81TA53 PO (08:36)
[2025-04-22 11:00] VITALS: BP 104/57; PULSE 92; RESP 17; TEMP 97.7; O2SAT 98
[2025-04-22 15:00] VITALS: BP 109/60; PULSE 103; RESP 18; TEMP 98.1; O2SAT 100
[2025-04-22] MEDS: warfarin 7.5mg tablet PO ONE (20:05)
[2025-04-22 22:00] VITALS: BP 97/60; PULSE 82; RESP 19; TEMP 97.8; O2SAT 98
[2025-04-23 02:00] VITALS: BP 109/59; PULSE 80; RESP 18; TEMP 97.3; O2SAT 96
[2025-04-23 06:00] VITALS: BP 110/69; PULSE 94; RESP 19; TEMP 97.7; O2SAT 99
[2025-04-23 06:51] VITALS: RESP 20; O2SAT 100
[2025-04-23 07:07] LABS: CREATININE 0.74 MG/DL (0.40-0.90); TOTAL CARBON DIOXIDE 24.2 MMOL/L (24-32); eCRCL 86 ML/MIN; eGFR 85 ML/MIN
[2025-04-23 07:17] VITALS: BP_SYST 110; PULSE 96
--- NOTE | 2025-04-23 07:39 | RADIOLOGY REPORT ---
CHEST RADIOGRAPH Indication: ET Tube PLacement Technique: Single frontal view of the chest was obtained COMPARISON: DI CHEST,SINGLE VIEW on DOS: 04/22/25, DI CHEST,SINGLE VIEW on DOS: 04/21/25, DI CHEST,SINGLE VIEW on DOS: 04/20/25, DI CHEST,SINGLE VIEW on DOS: 04/19/25, DI CHEST,SINGLE VIEW on DOS: 04/18/25 FINDINGS: Lines and Tubes: None Lungs: Increased right lower lobe airspace disease. Pulmonary vascular congestion. Pleura: No effusion.No pneumothorax. Cardiomediastinal contours: Median sternotomy. Cardiomegaly. Bones: Unremarkable IMPRESSION: Increased right lower lobe airspace disease. Pulmonary vascular congestion.
[2025-04-23 08:00] VITALS: RESP 20; O2SAT 100
[2025-04-23 09:16] LABS: INR 2.8 INR
--- NOTE | 2025-04-23 10:36 | PROGRESS NOTE ---
Progress Note CV Providers to CC MECHANICAL AORTIC VALVE REPLACEMENT Progress Note: THE PATIENT IS STABLE AND READY TO GO HOME INR IS NOTED TO BE ELEVATED TO 2.8 AND THEREFORE WE WILL HOLD THE COUMADIN FOR TODAY AND RESUME AT 1 MG ORAL DAILY. SHE WILL BE DISCHARGED TODAY AND REPEAT INR WILL BE PERFORMED ON FridayApril Central Line/PICC still needed: No Antibiotics Ordered?: No Subjective Subjective NO COMPLAINTS OF CHEST PAIN, FEVER OR SHORTNESS OF BREATH Objective Vitals Vital Signs Date Time Temp Pulse Resp B/P (MAP) Pulse Ox O2 Delivery O2 Flow Rate FiO2 04/23/25 08:00 20 100 Room Air 04/23/25 07:17 96 04/23/25 06:00 97.7 110/69 (83) 04/19/25 19:01 0 21 Lab Results: 04/22/25 0642 04/23/25 0608 Coagulation Studies Laboratory Tests Test 04/18/25 10:55 04/18/25 11:19 04/23/25 08:32 Activated Partial Thromboplast Time 28 SECONDS (22-32) Heparin Level (COAG) 0 MG/KG Calculated Heparin Req (Hep Assay) 40038 UNITS Calculated Protamine Req (Hep Assay 0 MG Activated Clotting Time 118 SEC (101-148) Prothrombin Time 26.2 SECONDS (9.0-12.0) H INR International Normalized Ratio 2.8 INR # Coagulation Comments Cardiac Rhythm: Sinus Rhythm Problem\Assessment\Plan Additional Plan THE PATIENT IS DOING WELL NOW STATUS POST AORTIC VALVE REPLACEMENT WITH MECHANICAL VALVE. SHE HAS RECEIVED COUMADIN (TWO CONSECUTIVE DOSES OF 5 MG AND LAST EVENING 7.5 KG). I WILL HOLD TODAY'S COUMADIN DOSE AND SHE RESUMED TOMORROW AT 1 MG DAILY. WE WILL REPEAT A PT/INR LEVEL ON FridayApril. Sepsis Screening Reassessment Date: Apr 23, 2025 Cardiology Exam: regular rate, rhythm, no murmur Pulmonary HER LUNGS ARE CLEAR TO AUSCULTATION Extremities: normal inspection BRY CORONA MD Apr 23, 2025 10:36
[2025-04-23] MEDS ORDERED: WARF1TAB83 PO (10:39)
--- NOTE | 2025-04-25 23:30 | DISCHARGE SUMMARY ---
DATE OF DISCHARGE: 04/23/2025 DICTATING PHYSICIAN: Darrius Sams ADMITTING PHYSICIAN: Dr. Home Bates. CARDIOLOGY: Dr. Carpenter. PREOPERATIVE DIAGNOSES: Severe aortic stenosis with a congenitally bicuspid valve. DISCHARGE DIAGNOSES: Severe aortic stenosis with a congenitally bicuspid valve. Status post aortic valve replacement with mechanical valve. COMPLICATIONS: Postoperatively none. CONDITION ON DISCHARGE: Stable. PROGNOSIS: Good. SUMMARY: This is a very pleasant 44-year-old female patient who has a history of progressing aortic valve stenosis with a known congenitally bicuspid valve. She has been noting increasing shortness of breath with exertion. She was evaluated by Dr. Carpenter by catheterization and found to have nonobstructive coronary artery disease. Subsequently, she was evaluated by Dr. Bates, who admitted her electively and took her to the operating room on 04/18, named the operation as aortic valve replacement utilizing a [address] [employer] mechanical aortic valve prosthesis via a limited upper sternotomy along with transesophageal echocardiography. Following the operation, the patient was transferred to the CICU in stable condition where the following morning, she was awake, alert, and up to the chair. She had initial H and H of 7.8 and 22.3. Her [place] and arterial line were discontinued. Beta-eugenio was initiated. We began her on Coumadin and also on Toradol; however, she had a significant rise in her creatinine up to a peak of 2. The Toradol was discontinued and her creatinine has returned to baseline at 0.74. She was also hyponatremic at the same time with a sodium as low as 128. It is now normal at 140. H and H has remained a bit on the low side. She is going to take her multivitamin with iron at home. Platelet count is uptrending at 152. As mentioned, Coumadin was initiated and her INR anita to 2.8. She ambulated on her own without any difficulty. Chest drain and pacer wire were removed on postop day #1 late in the day. She was felt to be stable for discharge home. DISCHARGE PROGRAM: Followup appointment with the cardiac surgeon's office in 2 weeks. Follow up with Dr. Carpenter's office in 4 weeks and with her primary physician in 6 weeks. Activity as per cardiac rehab instructions. PT/INR Friday with results of the [facility] and then further labs as directed. Her warfarin was held and then should resume on the at 1 mg per day until further instructions. She is to observe sternal precautions, no heavy lifting, no driving. She will on a regular diet, transitioning to a healthy diet as tolerated. MEDICATIONS: Include aspirin 81 mg p.o. daily, [place] 10/325 one p.o. q. 6 hours p.r.n. pain, Lopressor 12.5 mg p.o. b.i.d., warfarin 1 mg p.o. daily, vitamin D3 as at home 25 mcg p.o. daily, multivitamin as at home daily. Darrius Bates MD TID: [id number] RECEIPT: [id number] [facility] cc: Cabrera Carpenter MD
== END 2025-04-23 11:17 | disposition home or self-care (01) | DRG 219 ==
LOC: PAS IN 05:56 → CICU 2S 09:35 → PCU 3S 04-19 17:23
PROVIDERS: ADMIT Thoracic Surgery (Cardiothoracic Vascular Surgery); ATTEND Thoracic Surgery (Cardiothoracic Vascular Surgery)
PROC: 5A1221Z Performance of Cardiac Output, Continuous (ICD-10-PCS; 2025-04-18)
PROC: B24BZZ4 Ultrasonography of Heart with Aorta, Transesophageal (ICD-10-PCS; 2025-04-18)
PROC: 02RF08Z Replacement of Aortic Valve with Zooplastic Tissue, Open Approach (ICD-10-PCS; principal; 2025-04-18 08:02)
DX: I35.0 Nonrheumatic aortic (valve) stenosis (principal); N17.0 Acute kidney failure with tubular necrosis; D62 Acute posthemorrhagic anemia; E87.1 Hypo-osmolality and hyponatremia; Z88.8 Allergy status to other drugs, medicaments and biological substances; I25.10 Atherosclerotic heart disease of native coronary artery without angina pectoris
CPT/HCPCS: 93312; 93325; Z7506; Z7508; 36415; 36600; 71045; 71046; 76376; 80048; 80053; 81003; 82330; 82435; 82803; 82947; 82948; 83036; 83735; 84100; 84132; 84295; 85018; 85025; 85347; 85610; 85730; 86870; 86885; 86900; 86901; 86902; 86905; 86922; 87070; 87081; 93005; 93970; 94002; 94010; 94760; 97116; 97161; 97530; A4615; A4618; A6258; A6449; A7000; A7048; C1751; G0378; J0169; J0665; J0690; J1100; J1644; J1815; J1885; J2003; J2151; J2250; J2270; J2371; J2405; J2704; J2765; J2919; J3373; J3375; J3480; J3490; J7030; J7040; J7050; J7120; P9045; P9047

== ENCOUNTER 2025-05-19 13:51 | Emergency (ER) | payer OTHER, MEDICAID ==
[~2025-05-19] VITALS: Ht 162.6 cm; Wt 87.0 kg
[~2025-05-19 13:51] MED LIST changes: +ASPI81TA53 PO; +CHOL100061 PO; -CHOL25CA2 PO; +HYDR-3972 PO; -Insulin Reg/NS 100units/100mL 100 ML IV SCH; +LOP12.5T PO; +WARF1TAB83 PO; -dextrose 50%-water 50ml dispensing syringe IV PRN; -insulin glargine (Lantus) pen - multi-dose SQ PRN
--- NOTE | 2025-05-19 14:06 | Physician Documentation ---
History of Present Illness ~ Chief Complaint: Cold, cough & congestion Stated Complaint: CONGESTION Time Seen by MD: 14:12 HPI 44-year-old female who presents to the emergency department due to cough, shortness of breath, fatigue. She reports that she had a open aortic valve replacement done 04/18/2025. The cough began about 7 to 10 days after this procedure. Denies history of asthma. Denies feeling otherwise in well, specifically denying issues with fever, chills, nausea, vomiting, chest pain. Medication Reconciliation Allergies: Coded Allergies: prochlorperazine (Verified Allergy, Severe, swollen tongue, 05/19/25) Scheduled Aspirin (Children's Aspirin), 81 MG PO Q24H@0830 Benzonatate* (Benzonatate*), 1 CAP PO Q8H Cholecalciferol (Vitamin D3) (Vitamin D3), 1 CAP PO DAILY, (Reported) Metoprolol Tartrate (Lopressor tablet), 12.5 MG PO Q12H Multivitamin (Multi Vitamin Daily), 1 TAB PO DAILY, (Reported) Warfarin Sodium (Warfarin Sodium), 1 TAB PO DAILY Scheduled PRN Hydrocodone Bit/Acetaminophen (Hydrocodon-Acetaminophn 10-325 tablet), 1 TAB PO Q6H PRN for MODERATE PAIN 4-6 Past Medical History Past Medical History: *CARDIOVASCULAR* (Aortic valve replacement) Patient History: Patient reports no known family medical history. Review of Systems ROS As stated above in the HPI, otherwise all systems are reviewed and negative. Physical Exam Vital Signs: Temperature: 96.8, Source: Temporal, Heart Rate: 103, Respiratory Rate: 17, BP: 112/63, Pulse Oximetry: 98, Weight: 87.000 Physical Exam General: Alert, no apparent distress. Neck: Full range of motion. Respiratory: Lungs clear, no respiratory distress. Frequent spasmodic/tight cough. Chest: No accessory muscle use. Cardiovascular: Regular rate and rhythm, no murmurs. No extremity edema. Gastrointestinal: Soft, nontender, nondistended. Bowels sounds present. Extremities: Normal range of motion, no deformity. Neurologic: Oriented x4. Psychiatric: Normal mood and affect. Skin: Normal color, warm and dry. No edema, no ecchymosis. Progress Results/Orders Results/Orders Completed Orders - GIOVANNI TURCIOS Electrocardiogram (05/19/25 15:01) Hs Troponin I W Calculations (05/19/25 15:01) Benzonatate Capsule (Tessalon Perles Cap (05/19/25 16:20) Vital Signs 05/19/25 05/19/25 05/19/25 13:57 14:11 16:47 Temp 96.8 96.8 Pulse 103 94 Resp 17 18 17 B/P (MAP) 112/63 100/63 Pulse Ox 98 100 Laboratory Tests Test 05/19/25 14:11 White Blood Count 6.9 Red Blood Count 3.36 L Hemoglobin 9.0 L Hematocrit 26.5 L Mean Corpuscular Volume 79.0 Mean Corpuscular Hemoglobin 26.7 L Mean Corpuscular Hemoglobin Concent 33.8 Red Cell Distribution Width 13.4 Platelet Count 330 Mean Platelet Volume 7.4 Neutrophils (%) (Auto) 71.0 Lymphocytes (%) (Auto) 15.8 L Monocytes (%) (Auto) 11.4 Eosinophils (%) (Auto) 1.4 Basophils (%) (Auto) 0.4 Neutrophils # (Auto) 4.9 Lymphocytes # (Auto) 1.1 Monocytes # (Auto) 0.8 Eosinophils # (Auto) 0.1 Basophils # (Auto) 0.0 CBC Comment Sodium Level 137 Potassium Level 3.6 Chloride Level 104 Carbon Dioxide Level 26.4 Anion Gap 7 L Blood Urea Nitrogen 12 Creatinine 0.79 Estimated GFR/1.73 m2 79 BUN/Creatinine Ratio 15.2 Glucose Level 117 H Calcium Level 8.2 L Troponin I High Sensitivity 14 Pro-B-Type Natriuretic Peptide 1933 H Albumin 3.3 L Chemistry Comments EKG/XRAY/CT/US/VASC/MRI EKG : Additional Comment EKG at 3:09 p.m. interpreted by myself as sinus rhythm at a rate of 97, normal axis, nonspecific ST-T segment changes Chest X-Ray : Additional Comments Exam: CHEST,TWO VIEWS CHEST RADIOGRAPH Indication: spasmodic cough, 6 weeks post TAVR Technique: Frontal and lateral view of the chest was obtained Comparison: DI CHEST,SINGLE VIEW on DOS: 04/23/25, DI CHEST,SINGLE VIEW on DOS: 04/22/25, DI CHEST,SINGLE VIEW on DOS: 04/21/25, DI CHEST,SINGLE VIEW on DOS: 04/20/25, DI CHEST,SINGLE VIEW on DOS: 04/19/25 FINDINGS: Lines and Tubes: None Lungs: Increased interstitial prominence. This may represent pulmonary vascular congestion and/or viral pneumonia. Pleura: No effusion.No pneumothorax. Cardiomediastinal contours: Median sternotomy. Bones: Unremarkable IMPRESSION: Increased interstitial prominence. This may represent pulmonary vascular congestion and/or viral pneumonia. Electronically Signed by:GONZALO POPE MD Date & Time: 05/19/251445 Dictated by: GONZALO POPE MD Dictation date and time: 05/19/251445 I have reviewed and agree with the radiology report. I have reviewed and interpreted the imaging as: No focal consolidation, increased interstitial prominence Medical Decision Making Additional information obtaine: old records Findings This 44-year-old female presented with a proximally three weeks of intermittent dry cough onset approximately 7-10 days after open heart surgery for aortic valve replacement, patient reported no other acute symptoms concerns including no fever, shortness breath, chest pain, headache, nasal congestion, sore throat, or ear pain. Cough is worse when patient talks, EKG without this is a ischemia or infarction, troponin not elevated, proBNP not significantly elevated from previous visit, remainder of labs without clinically significant abnormality. Patient's vital signs are stable including no evidence of hypoxia on room air, patient is otherwise well-appearing and states she feels otherwise well. Chest x-ray was significant for evidence of increased interstitial prominence though otherwise normal. Differential Dx:Considerations: Include: Influenza, Pharyngitis-Diphtheria, Pharyngitis-Streptoccal, Pharyngitis-Viral, Pneumonia, Pnuemonitis, Sinusitis, URI, Other (Congestive heart failure, pulmonary embolism) Departure Time of Disposition: 16:30 Impression: Primary Impression: Cough Qualified Codes: R05.2 - Subacute cough Condition: Improved Discharge Instructions: Cough, Adult Additional Instructions: Please follow up with your primary care provider and cereal supervisor for your persistent cough, there was not a clear cause of the coughing, please use the prescribed Tessalon Perles to help with cough that disturbs sleep though you should continue to use your incentive spirometry as previously directed. Please follow up with your primary care provider in the next few days. Please return to the emergency department for any new or worsening concerning symptoms. Referrals: NO PRIMARY CARE PROVIDER (PCP) Prescriptions Benzonatate* (Benzonatate*) 100 Mg Capsule 1 CAP PO Q8H for cough for 10 Days, #30 CAP Prov: GIOVANNI TURCIOS 05/19/25 Education Educated: Patient Educated regarding: diagnosis, treatment, prognosis, need for follow up Signature Scribe Signature: x Attestation: The note accurately reflects work and decisions made by me.Angélica Fuller NP 05/19/25 14:06 The note accurately reflects work and decisions made by me.LUIS Summers 05/20/25 02:14 ANGÉLICA LOMBARDO NP May 19, 2025 14:06 GIOVANNI TURCIOS May 19, 2025 14:32
[2025-05-19 14:18] LABS: MEAN PLATELET VOLUME 7.4 FL (7.4-10.4); RED CELL DISTRIBUTION WIDTH 13.4 % (11.5-14.5)
[2025-05-19 14:38] LABS: CREATININE 0.79 MG/DL (0.40-0.90); TOTAL CARBON DIOXIDE 26.4 MMOL/L (24-32); eCRCL 78 ML/MIN; eGFR 79 ML/MIN
--- NOTE | 2025-05-19 14:49 | RADIOLOGY REPORT ---
CHEST RADIOGRAPH Indication: spasmodic cough, 6 weeks post TAVR Technique: Frontal and lateral view of the chest was obtained Comparison: DI CHEST,SINGLE VIEW on DOS: 04/23/25, DI CHEST,SINGLE VIEW on DOS: 04/22/25, DI CHEST,SINGLE VIEW on DOS: 04/21/25, DI CHEST,SINGLE VIEW on DOS: 04/20/25, DI CHEST,SINGLE VIEW on DOS: 04/19/25 FINDINGS: Lines and Tubes: None Lungs: Increased interstitial prominence. This may represent pulmonary vascular congestion and/or viral pneumonia. Pleura: No effusion.No pneumothorax. Cardiomediastinal contours: Median sternotomy. Bones: Unremarkable IMPRESSION: Increased interstitial prominence. This may represent pulmonary vascular congestion and/or viral pneumonia.
--- NOTE | 2025-05-19 15:12 | ELECTROCARDIOGRAPH REPORT ---
[facility] Test Date: 2025-05-19 Test Time: 15:09:46 Pat Name: CLAY LIU Department: [facility]ERGENCY [facility]OM [id number] Room: Gender: F Kennel Helper: BINTA : 1980 Requested By: GIOVANNI TURCIOS Order Number: [id number] Reading MD: Dr. TINO Parker Measurements Intervals [place] Rate: 97 P: 55 MS: 141 QRS: 5 QRSD: 79 T: 71 QT: 336 QTc: 427 Interpretive Statements Sinus rhythm Probable left atrial enlargement Borderline T wave abnormalities Electronically Signed On 05-20-2025 16:52:[address] TINO Parker Please click the below link to view image of tracing.
[2025-05-19 15:37] LABS: PRO BRAIN NATRIURETIC PEPTIDE 1933 PG/ML (0-125)
[2025-05-19] MEDS ORDERED: BENZ-38 PO (16:32)
[2025-05-19 16:47] VITALS: BP 100/63; PULSE 94; RESP 17; TEMP 96.8; O2SAT 100
[2025-05-20] MEDS ORDERED: WARF-55 PO (21:24)
== END 2025-05-19 16:40 | disposition home or self-care (01) ==
LOC: ER 13:52
DX: R05.9 Cough, unspecified (principal); R06.02 Shortness of breath; R53.83 Other fatigue; Z88.8 Allergy status to other drugs, medicaments and biological substances; Z79.899 Other long term (current) drug therapy; Z79.82 Long term (current) use of aspirin
CPT/HCPCS: 36415; 71046; 80048; 83880; 84484; 85025; 93005; 99285

== ENCOUNTER 2025-05-20 14:38 | Inpatient (IN) | payer OTHER, MEDICAID ==
[~2025-05-20] VITALS: Ht 167.6 cm; Wt 79.0 kg
[~2025-05-20 14:38] MED LIST changes: +BENZ-38 PO
--- NOTE | 2025-05-20 15:13 | Physician Documentation ---
History of Present Illness ~ Chief Complaint: Palpitations Stated Complaint: SEE CHEIF COMPLAINT Time Seen by MD: 18:07 HPI Patient is a 44-year-old female that presents to the emergency department for evaluation of palpitations. Patient underwent an AVR replacement on April 19. Since that time patient has felt periodic or episodic palpitations this causes her concern. Patient was sent home placed on metoprolol 12.5 mg. She was told to take a 2nd dose today as she felt like her heart was racing. Patient presents to the emergency department in stable condition at this time. Date: May 20, 2025 Time: 20:44 Additional note by Diego Hunter, DO: I took over the care of this patient from previous physician. I reviewed any previous notes available, obtain my own history, review of systems and physical examination was performed by myself. This is a 44-year-old female who presents for evaluation of palpitations. She has been seen here yesterday for cough. Undergone a workup, was discharged, prescribed Tessalon Perles. She had taken Tessalon Perles and feels that she is currently experiencing side-effect of the medication. She is on metoprolol as well as on warfarin. He is status post replacement of aortic valve secondary to congenital bicuspid valve aortic stenosis on 04/18/[address] Urban Francisco. She has a follow-up which was uneventful. No chest pain. No shortness a breath. No concerns for tobacco, alcohol or illicit substances use Medication Reconciliation Allergies: Coded Allergies: prochlorperazine (Verified Allergy, Severe, swollen tongue, 05/20/25) Scheduled Aspirin (Children's Aspirin), 81 MG PO Q24H@0830 Benzonatate* (Benzonatate*), 1 CAP PO Q8H Cholecalciferol (Vitamin D3) (Vitamin D3), 1 CAP PO DAILY, (Reported) Metoprolol Tartrate (Lopressor tablet), 12.5 MG PO Q12H Multivitamin (Multi Vitamin Daily), 1 TAB PO DAILY, (Reported) Warfarin Sodium (Warfarin Sodium), 1 TAB PO DAILY Scheduled PRN Hydrocodone Bit/Acetaminophen (Hydrocodon-Acetaminophn 10-325 tablet), 1 TAB PO Q6H PRN for MODERATE PAIN 4-6 Past Medical History Past Medical History: *CARDIOVASCULAR* Patient History: Patient reports no known family medical history. Review of Systems ROS 10 point review of systems was performed and unless noted above in HPI is negative for acute process/complaint. Physical Exam Vital Signs: Temperature: 97.6, Source: Temporal, Heart Rate: 105, Respiratory Rate: 15, BP: 146/98, Pulse Oximetry: 99, Weight: 79.000 Physical Exam GENERAL: Awake, alert, oriented, GCS 15, no apparent distress, non-toxic appearing, answers questions, follows commands appropriately. Examined in bed 10. HEENT: Atraumatic, normocephalic, pupils equal, extraocular muscles intact, sclerae anicteric, mucus membranes moist, oropharynx is clear, no stridor. NECK: supple, full active range of motion, trachea midline, no thyromegaly, no lymphadenopathy, no JVD. CARDIOVASCULAR: Regularly irregular rate/rhythm, mechanical valve click appreciated, Pulses are 2+ in all extremities and symmetric. Capillary refill less than 2 seconds. PULMONARY: Nonlabored, good air movement ,no respiratory distress, speaking in full sentences, clear to auscultation bilaterally, no wheezing, no ronchi, no rales, no accessory muscle use. GASTROINTESTINAL: Soft, non-tender, non-distended, normal active bowel sounds, no organomegaly, no pulsatile masses, no CVA tenderness. NEUROLOGIC: Lucid with normal mental status. Normal facial symmetry. Moves all extremities symmetrically and with purpose. No truncal ataxia. Speech is fluid without evidence of dysarthria or aphasia, no focal deficits appreciated. MUSCULOSKELETAL: There is full range of motion of all extremities. There is no joint pain or joint swelling or joint erythema. There is no muscle pain or tenderness or swelling. EXTREMITIES: warm, well-perfused, no cyanosis, no clubbing, no edema, no acute deformities. Skin: warm, dry, no rashes or lesions, no jaundice, no petechiae orpurpura. No ecchymosis. PSYCHIATRIC: Normal affect, normal insight, normal concentration. Focused exam: [Sternotomy scar is clean, dry, intact] Progress Results/Orders Results/Orders Vital Signs 05/20/25 05/20/25 05/20/25 05/20/25 15:00 17:07 17:07 17:07 Temp 97.6 Pulse 105 98 Resp 15 18 18 B/P (MAP) 146/98 108/64 (79) Pulse Ox 99 100 99 O2 Delivery Room Air* O2 Flow Rate 0 0 FiO2 21 05/20/25 19:37 Pulse 104 Resp 20 B/P (MAP) 109/66 (80) Pulse Ox 96 O2 Flow Rate 0 Laboratory Tests Test 05/20/25 15:03 05/20/25 17:22 White Blood Count 5.9 Red Blood Count 3.19 L Hemoglobin 8.7 L Hematocrit 25.3 L Mean Corpuscular Volume 79.3 Mean Corpuscular Hemoglobin 27.1 Mean Corpuscular Hemoglobin Concent 34.2 Red Cell Distribution Width 13.4 Platelet Count 299 Mean Platelet Volume 7.8 Neutrophils (%) (Auto) 67.5 Lymphocytes (%) (Auto) 17.7 L Monocytes (%) (Auto) 13.3 H Eosinophils (%) (Auto) 1.3 Basophils (%) (Auto) 0.2 Neutrophils # (Auto) 4.0 Lymphocytes # (Auto) 1.0 L Monocytes # (Auto) 0.8 Eosinophils # (Auto) 0.1 Basophils # (Auto) 0.0 CBC Comment Sodium Level 133 L Potassium Level 4.2 Chloride Level 101 Carbon Dioxide Level 24.2 Anion Gap 8 Blood Urea Nitrogen 13 Creatinine 0.75 Estimated GFR/1.73 m2 84 BUN/Creatinine Ratio 17.3 Glucose Level 101 Calcium Level 8.4 L Troponin I High Sensitivity 13 12 Troponin I High Sens Percent Delta 7 7 Troponin I Hi Sens Absolute Change -1 -1 Pro-B-Type Natriuretic Peptide 2150 H Albumin 3.2 L Chemistry Comments Medical Decision Making Additional information obtaine: old records Findings Facility Status: ED [facility], [facility] process The plan was discussed with the patient, who demonstrates clear understanding of the plan and is in agreement with the plan unless otherwise noted in the chart. All questions have been answered, all concerns were addressed unless otherwise documented. I was available throughout their ED stay for frequent reassessment and questions. Differential Diagnoses (considered and possible or likely): [PAC, PVC, mat, sinus tachycardia, atrial fibrillation, atrial flutter, less likely ventricular arrhythmia, less likely myocarditis, endocarditis, pericarditis, less likely ACS, less likely CHF] ??Differential Diagnoses (considered and unlikely, not requiring evaluation currently): [See above. PE is unlikely given the fact that patient is anticoagulated with warfarin and is compliant.] MDM Data Please see HPI for the following: Independent Historians and external Records Review. Historian: [Patient] Independent Historians: ?[Record review. I did review her discharge note as well as her echo which at the time showed normal EF preop and postop.] Medication Management: [Reviewed medication list] Social History and determinants: [Reviewed] Please see the body of the note for the following: Any independent interpretations of ECG, imaging studies. All vitals signs/haemodynamics, ordered tests were independently reviewed and interpreted by myself. Nursing triage complaint and vitals reviewed, additional nursing notes were reviewed as available and I agree unless otherwise noted or documented in contradiction in the chart Vital Signs: Independently reviewed Labs: Independently interpreted Imaging: Independently interpreted Old Medical Records: Independently reviewed, see HPI for relevant summary and information Pulse Oximetry: [97%] interpreted as [normal on room air] by me [Collection Advisor: [Regular Rate, Regular rhythm, multiple polymorphic PACs, PVCs, NSR] reviewed and interpreted by me] Additionally notably showing: [Reviewed. The patient is a fairly persistently tachycardic. No evidence of hypotension respiratory distress. CBC shows stable anemia. Normal platelets, no neutrophilic predominance. Chemistry is unremarkable, borderline dehydration. Initial and repeat troponins are negative. However, she does have elevated BNP, and it is rising compared to prior. Chest x-ray is unremarkable. Prosthetic valve has sternotomy wires noted.] Tests considered but not ordered include: [Echocardiogram to be repeated it on an inpatient basis] Social Determinants of Health Impact: Patient was evaluated in [facility] [place] to healthcare due to below par ratio of patient to medical providers. [] Comorbid Conditions Impacting Present Evaluation and Care/Treatment: [Recent AVR] Management Discussions with other Healthcare Providers: [Hospitalist regarding admission] Treatment and Disposition Medication Management (Given or considered): [Metoprolol for rate control]. See EMR for details Consideration for Hospitalization/Escalation/Deescalation of Care: Admission for observation and appears to be necessary for further evaluation of her rising BNP. ?ED Course:?[Her palpitations appear to be benign, however there is concern for rising BNP with a recent postop patient.] ?Shared decision making:?[] Code status:?FULL Please see the full Electronic Medical Record for full details of nursing documentation, medications list, other records of complete past medical history and conditions, vital signs, laboratory studies, and any radiologic study interpretations by radiologists. Portions of this note were completed using [employer] dictation software and as a result there may exist minor errors in spelling. I have reviewed elements of past family and social history and agree as included in note. Differential Dx:Considerations: Include: other (See body of main note for differential diagnosis) Differential Dx:Considerations: Include other (See body of main note for differential diagnosis) Departure Disposition: ADMITTED INPATIENT Impression: Primary Impression: Congestive heart failure Additional Impressions: Palpitations Elevated brain natriuretic peptide (BNP) level Anticoagulated on warfarin Referrals: NO PRIMARY CARE PROVIDER (PCP) Signature Scribe Signature: No scribe Attestation: The note accurately reflects work and decisions made by me.Diego Hunter DO 05/20/25 20:52 VERONICA CORRALESP May 20, 2025 15:13 DIEGO HUNTER DO May 20, 2025 20:49
[2025-05-20 15:33] LABS: MEAN PLATELET VOLUME 7.8 FL (7.4-10.4); RED CELL DISTRIBUTION WIDTH 13.4 % (11.5-14.5)
--- NOTE | 2025-05-20 15:41 | RADIOLOGY REPORT ---
CHEST RADIOGRAPH Indication: CP Technique: Single frontal view of the chest was obtained COMPARISON: DI CHEST,TWO VIEWS on DOS: 05/19/25, DI CHEST,SINGLE VIEW on DOS: 04/23/25, DI CHEST,SINGLE VIEW on DOS: 04/22/25, DI CHEST,SINGLE VIEW on DOS: 04/21/25, DI CHEST,SINGLE VIEW on DOS: 04/20/25 FINDINGS: Lines and Tubes: None Lungs: Clear Pleura: No effusion. No pneumothorax. Cardiomediastinal contours: Unremarkable. Prosthetic aortic valve. Bones: No acute osseous abnormality. Median sternotomy. IMPRESSION: No acute disease.
[2025-05-20 15:53] LABS: CREATININE 0.75 MG/DL (0.40-0.90); PRO BRAIN NATRIURETIC PEPTIDE 2150 PG/ML (0-125); TOTAL CARBON DIOXIDE 24.2 MMOL/L (24-32); eCRCL 89 ML/MIN; eGFR 84 ML/MIN
--- NOTE | 2025-05-20 16:08 | ELECTROCARDIOGRAPH REPORT ---
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 TINO Parker Measurements Intervals [place] Rate: 96 P: 69 [place]: 151 QRS: 25 QRSD: 72 T: 84 QT: 332 QTc: 420 Interpretive Statements Sinus tachycardia Ventricular premature complex Probable left atrial enlargement Low voltage, precordial leads Electronically Signed On 05-21-2025 19:22:[address] TINO Parker Please click the below link to view image of tracing.
[2025-05-20] MEDS ORDERED: potassium Cl 20 mEq SR tablet PO PRN ×2 (21:05)
[2025-05-20] MEDS ORDERED: potassium Cl 40MEQ/1/2NS 520ml 520 ML IV PRN (21:05)
[2025-05-20] MEDS ORDERED: magnesium Cl slow-release 64mg tablet PO PRN (21:05)
[2025-05-20] MEDS ORDERED: ondansetron/PF 4mg/2ml inj IV PRN (21:05)
[2025-05-20] MEDS ORDERED: magnesium sulf-water 2g/50mL 50 ML IV PRN (21:05)
[2025-05-20] MEDS ORDERED: magnesium sulf-water 4G/100mL 100 ML IV PRN (21:05)
--- NOTE | 2025-05-20 21:21 | HISTORY AND PHYSICAL-Residence ---
History & Physical Providers to CC Resident Creating Document: NIKI PATE RES CC: JAVIER AMBROSE MD ~ History of Present Illness Reason for Admit\Complaint: palpitations since morning History of Present Illness 44-year-old female with history of severe aortic stenosis with a congenitally bicuspid s/p aortic valve replacement with mechanical valve, chronic anemia presented the ER with chief complaints of palpitations from the morning of 05/20. She had fluttering sensation in the chest since today morning, associated with fatigue. She denies lightheadedness or dizziness. She has ongoing dry cough for past three weeks denies fever denies shortness of breath. She is taking warfarin 5 mg once daily. Does have black-colored stools and is taking iron pills. Was told she had low iron. He had Cologuard done which was negative. 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 Allergies: Coded Allergies: prochlorperazine (Verified Allergy, Severe, swollen tongue, 05/20/25) Home Medications Home Medications Active Benzonatate* (Benzonatate) 100 Mg Capsule 1 Cap PO Q8H 10 Days Warfarin Sodium 1 Mg Tablet 1 Tab PO DAILY 30 Days Children's Aspirin (Aspirin) 81 Mg Tab.chew 81 Mg PO Q24H@0830 Hydrocodon-Acetaminophn 10-325 tablet (Acetaminophen/Hydrocodone Bitart) 10mg- 325mg Tablet 1 Tab PO Q6H PRN Lopressor tablet (Metoprolol Tartrate) 25 Mg Tablet 12.5 Mg PO Q12H Reported Multi Vitamin Daily (Multivitamin) 1 Each Tablet 1 Tab PO DAILY 30 Days Vitamin D3 (Cholecalciferol (Vitamin D3)) 25 Mcg (1000 Unit) Capsule 1 Cap PO DAILY 30 Days Past Medical History Past Medical History Severe aortic stenosis with congenitally bicuspid valve s/p aortic valve replacement with a mechanical valve anemia Past Surgical History Surgical History Comment S/p aortic valve replacement with mechanical on 04/18 Hysterectomy Family History Family History: Patient reports no known family medical history. 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 no change in appetite/weight HEENT: No blurring of the vision, No sore throat, epistaxis, tinnitus Cardiovascular: No chest pain/discomfort,c/o palpitations, syncope. No pedal edema Respiratory: c/o dry cough, No sob, hemoptysis Gastrointestinal: No abdominal pain, nausea, vomiting. No diarrhea, constipation, melena. Genitourinary: No frquency, urgency, incontinence, nocturia. No dysuria, hematuria Musculoskeletal: No arthralgia, myalgia Endocrine: No fatigue, polydipsia, polyuria. No heat or cold intolerance Neurologic: No headache, vertigo. No weakness, numbness or tingling of extremities Psychiatric: No hallucinations/delusions, no anhedonia, no suicidal ideation Hematologic: No bleeding or bruises Reviewed in full. All negative except for pertinent positives in HPI Exam Vitals: Vital Signs Date Time Temp Pulse Resp B/P (MAP) Pulse Ox O2 Delivery O2 Flow Rate FiO2 05/20/25 19:37 104 20 109/66 (80) 96 0 05/20/25 17:07 Room Air* 21 05/20/25 15:00 97.6 General: General: pleasant adult female, AAOx4, not in apparent distress Head: Normocephalic with an atraumatic Eyes: Pupils- 3mm, reacting to light, conjunctiva- anicteric Nose and throat: No polyps, septum- normal, no mucosal ulcers Neck: Supple, no lymphadenopathy, no carotid bruit Respiratory: No use of accessory muscles of respiration, Bilateral normal vesiscular breath sounds heard. No wheeze, rhochi or creps Cardiac: S1-S2 heard, mechanical valve sounds in the AA, rythm regular, tachycardic no gallop/murmur mid sternal incision- well healed, no tenderness Abdomen: non distended, no tenderness, no organomegaly, bowel sounds- heard Extremities: no clubbing, no pedal edema, no deformities, peripheral pulses- 2+ Skin: warm and dry, no rash, no purpura Neuro: No focal deficit, gross cranial nerve exam- normal Diagnostic Data Last Recorded Lab Results: 05/20/25 1503 05/20/25 1503 Diagnostic Data: Laboratory Tests Test 05/20/25 21:09 Coagulation Comments Advance Care Planning Advanced Care plannin - 30 Minutes (Code status is discussed with her and she opted for full code) Additional Plan 44-year-old female with history of severe aortic stenosis with a congenitally bicuspid s/p aortic valve replacement with mechanical valve, chronic anemia presented the ER with chief complaints of palpitations Palpitations -EKG- sinus tachycardia, PVCs -follow up on TSH -patient stated she had some anxiety, might be contributing to palpitations -patient is placed on telemetry, monitor for any arrhythmias -consult cardiology if needed Severe aortic stenosis with congenitally bicuspid valve S/p aortic valve replacement with mechanical valve on 04/18 -patient is on anticoagulation with warfarin 5 mg once daily -maintain anticoagulation with target INR of 2.5 range of 2-3 for first 3 months -monitor INR daily Normocytic Anemia -hemoglobin before surgery was 12, from the day of surgery hemoglobin trended 9.5 to 8.7 currently -normal MCV, MCH, RDW -follow up on iron panel, B12, stool for occult blood -follow up on peripheral smear to look for any hemolysis secondary to valve -based on iron panel results if ferritin and TSAT low, we will start on IV Venofer Elevated proBNP -with likely secondary to palpitations -had no signs and symptoms of heart failure Code Status: Full code Line/tube: PIV DVT prophylaxis: Warfarin Nutrition: Heart healthy PT: No Prognosis: Guarded Disposition: Continue care in ortho floor, consult Cardiology if needed Niki Pate MD IM PGY-3 resident Patient evaluated using HIPPA compliant AV device Agree with plan as discussed with the resident Javier Ambrose MD Date of Service: May 20, 2025 Billing Provider: JAVIER AMBROSE MD, [place], [facility] May 20, 2025 21:21 JAVIER AMBROSE MD May 21, 2025 03:27
[2025-05-20] MEDS ORDERED: WARF-55 PO (21:24)
[2025-05-20 21:27] LABS: LEUKOCYTE ESTERASE ,URINE NEGATIVE (Neg); NITRITES, URINE NEGATIVE (Neg); OCCULT BLOOD,URINE NEGATIVE (Neg); UA COLLECTION TYPE NON-SPECIFIED
[2025-05-20 21:29] LABS: APTT 37 SECONDS (22-32); INR 1.9 INR
[2025-05-20] MEDS: metoprolol tartrate 1mg/ml inj IV ONE (21:37)
[2025-05-20] MEDS: PERFLUTREN PROTEIN-A MICROSPHR (Optison) 0.22 MG/ML 3ML VIAL IV ONE (21:38)
[2025-05-20] MEDS ORDERED: warfarin 5mg tablet PO SCH (21:50)
[2025-05-20 22:15] LABS: HCG SERUM QL NEGATIVE
[2025-05-20 22:19] LABS: % IRON SATURATION 11 % (11-46)
[2025-05-20] MEDS: warfarin 5mg tablet PO ONE (22:29)
[2025-05-20] MEDS: HYDROcodone/acetaminophen 10/325mg tab PO PRN (23:01)
[2025-05-20 23:05] VITALS: BP 115/70; PULSE 107; RESP 16; TEMP 97.6; O2SAT 100
[2025-05-21 04:19] LABS: INFLUENZA TYPE A ANTIGEN RAPID NEGATIVE (Negative); INFLUENZA TYPE B ANTIGEN RAPID NEGATIVE (Negative)
[2025-05-21 06:00] VITALS: BP 103/50; PULSE 107; RESP 16; TEMP 97.7; O2SAT 100
[2025-05-21 06:13] LABS: APTT 36 SECONDS (22-32); INR 1.7 INR
[2025-05-21 06:27] LABS: CREATININE 0.62 MG/DL (0.40-0.90); TOTAL CARBON DIOXIDE 23.4 MMOL/L (24-32); eCRCL 107 ML/MIN; eGFR > 90 ML/MIN
[2025-05-21] MEDS: K and/or MAG REPLACEMENT MC SCH (07:24)
[2025-05-21] MEDS: docusate sod 100mg capsule PO SCH (07:25)
[2025-05-21 07:29] VITALS: BP 103/61; PULSE 110
[2025-05-21] MEDS: metoprolol tartrate 12.5mg (1/2 tablet) PO SCH (07:37)
[2025-05-21 10:00] VITALS: BP 101/67; PULSE 95; RESP 18; TEMP 98.2; O2SAT 97
[2025-05-21 11:00] LABS: MEAN PLATELET VOLUME 7.7 FL (7.4-10.4); RED CELL DISTRIBUTION WIDTH 13.5 % (11.5-14.5)
[2025-05-21 11:22] LABS: LYMPHOCYTES % (MANUAL) 17.0 % (21-51); MONOCYTES % (MANUAL) 5.0 % (2-12); NEUTROPHILS % (MANUAL) 78.0 % (42-75); PLATELET ESTIMATE NORMAL
[2025-05-21] MEDS: enoxaparin 80mg/0.8ml syringe SUBCUT SCH (15:16)
--- NOTE | 2025-05-21 16:28 | PROGRESS NOTE- Residence ---
Progress Note - Resident Providers to CC Resident Creating Document: JEANINE MIR, MELINDA ~ Central Line/PICC still needed: N\A Saab-Non Protocol Saab Indications Met/Not Met: F/C Indications Not Met Antibiotic Timeout Antibiotic Ordered?: No Objective Vital Signs Date Time Temp Pulse Resp B/P (MAP) Pulse Ox O2 Delivery O2 Flow Rate FiO2 05/21/25 10:00 98.2 95 18 101/67 (78) 97 Room Air 05/20/25 23:40 0.0 21 Result Diagram: 05/21/2542305/21/25423 General: Well alert, well oriented, not confused, not agitated, not in acute distress, well cooperated during the physical. HEENT: Conjunctive are pink, sclerae clear, no icterus, pupil is equal in both sides, reactive to light, no ear discharge, no pharyngeal erythema or an edema. Neck: Supple, no JVD, no lymphadenopathy and thyromegaly. Chest: Linear sternal scar present on chest. Equal air entry on both lungs, no added sounds, no wheeze. Cardiovascular: S1-S2 regular sinus rhythm and, regular rate, no gallops, no rubs, no murmurs Abdomen: No visible peristalsis, Bowel sounds present on auscultation, soft, nontender, no guarding, no rigidity Extremities: No obvious deformities, no pitting edema bilaterally, capillary refill intact, peripheral pulsations are intact on both sides Central Nervous System: No focal neurological deficits, no motor or sensory weakness in all 4 extremities, could move all 4 extremities, 2+ deep tendon reflexes, negative Babinski. Musculoskeletal: No joint swelling, deformities, inflammations, and no scoliosis and back tenderness Skin: Warm and dry. Coagulation Studies Laboratory Tests Test 05/21/25 04:24 Prothrombin Time 16.5 SECONDS (9.0-12.0) H INR International Normalized Ratio 1.7 INR Activated Partial Thromboplast Time 36 SECONDS (22-32) H Coagulation Comments Counseling Services Smoking & Tobacco Cessation: N/A Advance Care Planning Advanced Care planning: N/A Assessment Assessment This is a 44-year-old female with congenital bicuspid aortic valve status post open aortic valve replacement with mechanical valves and chronic anemia presents to the ER with sinus tachycardia which later evolved into atrial flutter. She was found to have hyperthyroidism. Currently being treated with methimazole and propranolol. Currently not in a therapeutic range of INR, added Lovenox and increased the dose of warfarin. Plan Plan Severe aortic stenosis secondary to congenital bicuspid aortic valve. Status post open aortic valve replacement with mechanical valve on 3 Acute heart failure with preserved ejection fraction likely secondary to atrial flutter. Vitals: Tachycardia with heart rate in 100s with atrial flutter. Soft blood pressure. NT proBNP 2150 No symptoms of heart failure, never been diagnosed before. Likely secondary to palpitation. No treatment with Lasix in view of soft blood pressure. INR: To maintain therapeutic INR in the range of 2-3. Echo: Essentially normal with ejection fraction of 70%. Plan: Lovenox 80 mg p.o. b.i.d. today. Increased dose of warfarin to 6 mg from tonight. Monitor INR and vitals. Atrial flutter likely secondary to Primary hyperthyroidism Dhruv Vasc score 1 TSH < 0.01, free T4 2.7 Plan: Started Methimazole 10 mg p.o. t.i.d., propranolol Awaiting thyroid ultrasound and thyroid scintigraphy results. We will order antithyroglobulin and antithyroid peroxidase antibody if needed. Normocytic normochromic anemia Gives history of black tarry stool Stool guaiac Code status: Full code DVT prophylaxis: Warfarin Analgesia/sedation: Morphine/Strawberry Line/tube: PIV GI prophylaxis: None Nutrition: Heart healthy PT: Not Ordered. Prognosis: Guarded Disposition: Continue medical management with methimazole and propranolol, monitor INR and vitals. Jeanine Mir MD PGY1, Internal Medicine [facility] Date of Service: May 21, 2025 Billing Provider: LOREE LIMON MD Common Visit Codes: [id number] INP/OBS CARE(HIGH) JEANINE MIR, RES May 21, 2025 16:28 LOREE LIMON MD May 22, 2025 08:00
--- NOTE | 2025-05-21 17:01 | RADIOLOGY REPORT ---
Procedure: DI NECK FOR SOFT TISSUES Exam Date: 05/21/2025 02:33 PM History: palpitation Comparison Study: None Soft Tissue Neck: AP and lateral views. Findings: Nasopharyngeal, jerrica pharyngeal, hypo pharyngeal, and tracheal airway are patent. No significant soft tissue swelling. Nonspecific calcifications in the anterior soft tissues of the neck, some of which may be cartilaginous calcification and/or dystrophic calcification. No radiopaque foreign body. There is straightening of the normal cervical lordosis. No significant spondylolisthesis in the visualized portions of the cervical spine. Multilevel moderate facet hypertrophy. Nuchal ligament calcification posteriorly at the C4 level. Impression: 1. No significant soft tissue swelling or evidence of radiopaque foreign body. 2. Nonacute findings as detailed above.
[2025-05-21] MEDS: warfarin 5mg tablet PO SCH (17:25)
[2025-05-21] MEDS: warfarin 1mg tablet PO SCH (17:25)
[2025-05-21 18:00] VITALS: BP 108/65; PULSE 111; RESP 20; TEMP 97.9; O2SAT 99
[2025-05-21] MEDS ORDERED: warfarin 3mg tablet PO SCH (18:00)
[2025-05-21] MEDS ORDERED: warfarin 5mg tablet PO SCH (18:00)
[2025-05-21 19:22] VITALS: BP 96/57; PULSE 106
[2025-05-21] MEDS: propranolol 10mg tablet PO SCH (21:00)
[2025-05-21 22:00] VITALS: BP 96/67; PULSE 98; RESP 16; TEMP 97.3; O2SAT 97
[2025-05-22 06:00] VITALS: BP 106/71; PULSE 111; RESP 20; TEMP 97.4; O2SAT 99
[2025-05-22 06:03] LABS: MEAN PLATELET VOLUME 7.8 FL (7.4-10.4); RED CELL DISTRIBUTION WIDTH 13.4 % (11.5-14.5)
[2025-05-22 06:43] LABS: APTT 38 SECONDS (22-32); INR 2.4 INR
[2025-05-22 06:58] LABS: OCCULT BLOOD STOOL NEGATIVE (Neg)
[2025-05-22 06:59] LABS: CREATININE 0.69 MG/DL (0.40-0.90); TOTAL CARBON DIOXIDE 24.6 MMOL/L (24-32); eCRCL 96 ML/MIN; eGFR > 90 ML/MIN
[2025-05-22 07:18] VITALS: BP 108/71; PULSE 101
[2025-05-22 08:38] VITALS: BP 112/69; PULSE 90
[2025-05-22 10:28] VITALS: BP 103/63; PULSE 54; RESP 15; TEMP 98; O2SAT 99
[2025-05-22 11:16] VITALS: PULSE 99
[2025-05-22] MEDS: propranolol 10mg tablet PO SCH (11:26)
--- NOTE | 2025-05-22 12:04 | RADIOLOGY REPORT ---
ULTRASOUND SOFT TISSUE HEAD AND NECK CLINICAL INDICATION: hyperthyroidism, look for thyroid nodules. TECHNIQUE: Multiple real time sonographic images of the thyroid were obtained. Comparison: DI NECK FOR SOFT TISSUES on DOS: 05/21/25 FINDINGS: The right thyroid gland measures 7.4 x 3.2 x 2.9 cm. The left thyroid gland measures approximately 5.3 x 2.2 x 2.0 cm. The isthmus measures 1.5 cm. Thyroid gland is diffusely enlarged and heterogeneous in appearance likely representing multinodular goiter. Thyroid nodules: Multiple bilateral isoechoic and mixed cystic and solid TR 3 nodules are present measuring up to 2.5 cm in the left lower pole and 2.9 cm in the right upper pole. IMPRESSION: Findings are suggestive of multinodular goiter. Multiple bilateral TR 3 nodules measuring up to 2.5 cm in the left lower pole and 2.9 cm in the right upper pole. [employer] TI-RADS Categories and Recommendations (2017): TR1: 0 points, Benign, No FNA TR2: 2 points, Not suspicious, No FNA TR3: 3 points, Mildly suspicious, FNA if > or = 2.5 cm, Follow if > or = 1.5 cm TR4: 4-6 points, Moderately Suspicious, FNA if > or = 1.5 cm, Follow if > or = 1.0 cm TR5: 7+ points, Highly Suspicious, FNA if > or = 1.0 cm, Follow if > or = 0.5 cm Follow-up ultrasound guidelines: TR5: yearly for 5 years, if no growth or change in TI-RADS level TR4: at 1, 2, 3 and 5 years, if no growth or change in TI-RADS level TR3: at 1, 3 and 5 years, if no growth or change in TI-RADS level If increased but below threshold for FNA, repeat in one year. Source: ACR Thyroid Imaging, Reporting and Data System (TI-RADS): White Paper of the ACR TI-RADS Committee. Erwin et al., J Am Molly Radiol 2017;14:587-595.
[2025-05-22] MEDS ORDERED: METH-375 PO (12:27)
[2025-05-22] MEDS ORDERED: PROP20TA6 PO (12:27)
--- NOTE | 2025-05-22 17:52 | DISCHARGE SUMMARY-Residence ---
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 Normochromic normocytic anemia Operations\Procedures: None Consultants: None Complications: None Condition on DC: Stable New Medications: Methimazole (Methimazole) 10 Mg Tablet 10 MG PO TID for 30 Days, #90 TAB Propranolol Hcl (Propranolol Hcl) 20 Mg Tablet 20 MG PO Q6H for 30 Days, #120 TAB Continued Medications: Aspirin (Children's Aspirin) 81 Mg Tab.chew 81 MG PO Q24H@0830, #60 TAB.CHEW Cholecalciferol (Vitamin D3) (Vitamin D3) 25 Mcg (1000 Unit) Capsule 1 CAP PO DAILY for 30 Days, #30 CAP 0 Refills Multivitamin (Multi Vitamin Daily) 1 Each Tablet 1 TAB PO DAILY for 30 Days, #30 TAB 0 Refills Warfarin Sodium (Warfarin Sodium) 5 Mg Tablet 1 TAB PO DAILY, TAB 0 Refills Discontinued Medications: Metoprolol Tartrate (Lopressor tablet) 25 Mg Tablet 12.5 MG PO Q12H, #60 TAB Discharge Summary: History of presenting illness: 44-year-old female with history of severe aortic stenosis with a congenitally bicuspid aortic valve status post open valve replacement with mechanical valve, chronic normocytic normochromic anemia presented the ER with chief complaints of palpitations. She had fluttering sensation in the chest associated with fatigue. She denies lightheadedness , chest pain, leg swelling dizziness, syncope. She has ongoing dry cough for past three weeks denies fever denies shortness of breath. Currently on warfarin and iron pulse, complaining of dark tarry stools since the past few weeks. Hospital course: Patient was found to be in sinus tachy on tele monitoring. She had 1 episode of atrial flutter with a heart rate in the range of 160s. Her TSH was found to be less than 0.01, and elevated free T4. Ultrasound of thyroid shows multiple nodules. She was started on methimazole and propranolol which helped reduce his symptoms. She had no symptoms of heat intolerance, weight loss, hair loss. She was also found to be in subtherapeutic INR for her mechanical valve replacement. She was given 2 doses of Lovenox 80 mg which bumped up her INR to 2.4. She has been advanced to maintain a therapeutic INR from 2.5-3.5. Her H&H was stable throughout the hospitalization and correlated with her previous value. Her NT proBNP was 2000, in the same range during her surgery. She looked clinically dry with tachycardia and soft blood pressure and hence she has not been started on Lasix. She is hemodynamically stable and symptomatically better and hence being discharged with following instructions. Vital Signs Date Time Temp Pulse Resp B/P (MAP) Pulse Ox O2 Delivery O2 Flow Rate FiO2 05/22/25 11:16 99 05/22/25 10:28 98.0 15 103/63 (76) 99 Room Air 05/21/25 19:33 0.0 21 Laboratory Tests Test 05/20/25 19:55 05/20/25 21:09 05/20/25 21:56 05/21/25 03:50 Urine Specimen Description Non-specified Urine Color Yellow Urine Clarity Clear Urine pH 6.0 Urine Specific [place] <=1.005 Urine Protein Negative mg/dl Urine Glucose (UA) Negative mg/dl Urine Ketones Negative mg/dl Urine Occult Blood Negative Urine Nitrite Negative Urine Bilirubin Negative Urine Urobilinogen 0.2 E.U/dL Urine Leukocyte Esterase Negative Urine Culture Indicated Not ind Volume Urine Centrifuged 10 ml Urine Comment Prothrombin Time 18.1 SECONDS INR International Normalized Ratio 1.9 INR Activated Partial Thromboplast Time 37 SECONDS Coagulation Comments Iron Level 26 UG/DL Total Iron Binding Capacity 247 UG/DL Percent Iron Saturation 11 % Transferrin 223 mg/dL Human Chorionic Gonadotropin, Qual Negative Influenza Type A Antigen Negative Influenza Type B Antigen Negative SARS-CoV-2 Antigen (Rapid) Negative Test 05/21/25 04:24 05/21/25 07:38 05/21/25 08:08 05/22/25 04:28 White Blood Count 4.9 X10'3 5.2 X10'3 Red Blood Count 3.12 X10'6 3.46 X10'6 Hemoglobin 8.4 g/dl 9.2 g/dl Hematocrit 25.0 % 27.5 % Mean Corpuscular Volume 80.3 FL 79.6 FL Mean Corpuscular Hemoglobin 26.8 PG 26.5 PG Mean Corpuscular Hemoglobin Concent 33.4 g/dL 33.3 g/dL Red Cell Distribution Width 13.5 % 13.4 % Platelet Count 270 X10'3 311 X10'3 Mean Platelet Volume 7.7 FL 7.8 FL Neutrophils (%) (Auto) 68.5 % 73.1 % Lymphocytes (%) (Auto) 18.4 % 15.3 % Monocytes (%) (Auto) 11.9 % 9.8 % Eosinophils (%) (Auto) 0.8 % 1.5 % Basophils (%) (Auto) 0.4 % 0.3 % Neutrophils # (Auto) 3.3 X10'3 3.8 X10'3 Lymphocytes # (Auto) 0.9 X10'3 0.8 X10'3 Monocytes # (Auto) 0.6 X10'3 0.5 X10'3 Eosinophils # (Auto) 0.0 X10'3 0.1 X10'3 Basophils # (Auto) 0.0 X10'3 0.0 X10'3 CBC Comment Differential Total Cells Counted 100 Neutrophils % (Manual) 78.0 % Lymphocytes % (Manual) 17.0 % Monocytes % (Manual) 5.0 % Platelet Estimate Normal Red Blood Cell Morphology Normal Basophilic Stippling Hematology Pathologist Comment See note Prothrombin Time 16.5 SECONDS 22.4 SECONDS INR International Normalized Ratio 1.7 INR 2.4 INR Activated Partial Thromboplast Time 36 SECONDS 38 SECONDS Coagulation Comments Sodium Level 137 MMOL/L 138 MMOL/L Potassium Level 4.4 MMOL/L 4.3 MMOL/L Chloride Level 104 MMOL/L 103 MMOL/L Carbon Dioxide Level 23.4 MMOL/L 24.6 MMOL/L Anion Gap 10 10 Blood Urea Nitrogen 12 MG/DL 12 MG/DL Creatinine 0.62 MG/DL 0.69 MG/DL Estimated GFR/1.73 m2 > 90 ML/MIN > 90 ML/MIN BUN/Creatinine Ratio 19.4 17.4 Glucose Level 71 MG/DL 98 MG/DL Calcium Level 8.6 MG/DL 9.1 MG/DL Magnesium Level 1.9 MG/DL 2.0 MG/DL Total Bilirubin 0.6 MG/DL 0.6 MG/DL Aspartate Amino Transf (AST/SGOT) 45 U/L 30 U/L Alanine Aminotransferase (ALT/SGPT) 76 U/L 62 U/L Alkaline Phosphatase 371 IU/L 380 IU/L Total Protein 7.3 G/DL 7.9 G/DL Albumin 3.1 G/DL 3.2 G/DL Globulin 4.2 G/DL 4.7 G/DL Albumin/Globulin Ratio 0.7 0.7 Thyroid Stimulating Hormone (TSH) < 0.01 ulU/ml Free Thyroxine 2.70 NG/DL Chemistry Comments Glucometer 78 mg/dl 140 mg/dl Test 05/22/25 06:50 Stool Occult Blood Negative Imaging: Chest x-ray: No acute cardio pulmonary process Echo: Normal LV size and wall thickness. Overall systolic function is normal. LVEF is 70-75%. 23 mm Abbot [place] Mechanical AVR appears well seated with ? trivial PVL at 10 and 7 oclock SAX BASE. Pk v: 242, Grad: 24/12. Mild MV annular calcification without stenosis. Trace regurgitation by color and spectral flow Doppler. TV appears structurally normal with trace regurgitation by color and spectral flow Doppler. Trace circumferential pericardial effusion without hemodynamic compromise. Head and neck ultrasound:Findings are suggestive of multinodular goiter. Multiple bilateral TR 3 nodules measuring up to 2.5 cm in the left lower pole and 2.9 cm in the right upper pole. Physical exam on discharge: General: Well alert, well oriented, not confused, not agitated, not in acute distress, well cooperated during the physical. HEENT: Conjunctive are pink, sclerae clear, no icterus, pupil is equal in both sides, reactive to light, no ear discharge, no pharyngeal erythema or an edema. Neck: Supple, no JVD, no lymphadenopathy and thyromegaly. Chest: Linear sternal scar present on chest. Equal air entry on both lungs, no added sounds, no wheeze. Cardiovascular: S1-S2 regular sinus rhythm and, regular rate, no gallops, no rubs, no murmurs Abdomen: No visible peristalsis, Bowel sounds present on auscultation, soft, nontender, no guarding, no rigidity Extremities: No obvious deformities, no pitting edema bilaterally, capillary refill intact, peripheral pulsations are intact on both sides Central Nervous System: No focal neurological deficits, no motor or sensory wea kness in all 4 extremities, could move all 4 extremities, 2+ deep tendon reflexes, negative Babinski. Musculoskeletal: No joint swelling, deformities, inflammations, and no scoliosis and back tenderness Skin: Warm and dry. Discharge instructions: Follow up with your primary care proider in 1 week. Referral to [employer] for primary care physician An appointment for Thyoid nuclear scan to be given by your endoctionologist. Take your medications regulary. Follow up with the health information administrator, discussed about requiring Lasix for elevated NT proBNP. Visit ER immediately in case palpiatations, chest pain, dizziness, syncope. *Problems/Diagnosis: (1) Anxiety Status: Acute (2) Sinus tachycardia Status: Acute (3) Congestive heart failure Status: Acute (4) Palpitations Status: Acute (5) Anticoagulated on warfarin Status: Acute (6) Toxic nodular goiter Status: Acute (7) Hyperthyroidism Status: Acute (8) Atrial flutter Status: Acute Total Time Spent on D/C: > 30 Minutes Counseling Services Smoking & Tobacco Cessation: N/A Date of Service: May 22, 2025 Billing Provider: LOREE LIMON MD Common Visit Codes: 99802-RJH/OBS DISCH DAY >30min JEANINE MATHIS, RES May 22, 2025 17:48 LOREE LIMON MD May 23, 2025 07:20
--- NOTE | 2025-05-22 18:03 | CARDIOLOGY REPORT ---
APPROVED REPORT EXAM: Limited 2D, Doppler, and color-flow Echocardiogram. Patient Location: 4022 [address] Heart Rate: 102-116 bpm Rhythm: SINUS Indications ARRHYTHMIA 23 MM TRAVIS [place] MECHANICAL AVR 04/18/25 Commercial Truck Driver: Isis Carpenter MD Previous echo: 04/18/25 [facility] EF 65-70%, CALEB: 2.7, PK V: 239, GRAD: , trMR, trTR, RVE 2D Dimensions IVSd 1.0 (0.7-1.1cm) LVDd 5.1 cm PWd 1.1 (0.7-1.1cm) IVSs 1.4 (0.8-1.2cm) LVDs 2.8 (2.5-4.0cm) PWs 1.4 (0.8-1.2cm) LVEF(%) 76.0 (>50%) FS (%) 45.0 % SV 94.1 ml CO 10.2 L/min Aortic Valve AoV Peak Sanjiv. 242.3 cm/s AoV VTI 37.7 cm AO Peak GR. 23.5 mmHg AO Mean GR. 12 mmHg LVOT VTI 20.53 cm LVOT Peak Sanjiv. 131.6 cm/s AV DI 0.54 % Mitral Valve MV Peak Gr. 8 mmHg MV PHT 68 ms MVA (PHT) 3.24 cm2 MV VMax 141.0 cm/s LEFT VENTRICLE Normal LV size and wall thickness. Overall systolic function is normal. LVEF is 70-75%. AORTIC VALVE 23 mm Abbot [place] Mechanical AVR appears well seated with trivial PVL at 10 and 7 oclock SAX BASE. Pk v: 242, Grad: 08/06. MITRAL VALVE Mild MV annular calcification without stenosis. Trace regurgitation by color and spectral flow Doppler. TRICUSPID VALVE TV appears structurally normal with trace regurgitation by color and spectral flow Doppler. PERICARDIUM Trace circumferential pericardial effusion without hemodynamic compromise. Other Information Study Quality: Adequate but limited due to recent echo 04/18/25 Conclusion Normal LV size and wall thickness. Overall systolic function is normal. LVEF is 70-75%. 23 mm Abbot [place] Mechanical AVR appears well seated with trivial PVL at 10 and 7 oclock SAX BASE. Pk v: 242, Grad: 08/06. Mild MV annular calcification without stenosis. Trace regurgitation by color and spectral flow Doppler. TV appears structurally normal with trace regurgitation by color and spectral flow Doppler. Trace circumferential pericardial effusion without hemodynamic compromise.
== END 2025-05-22 14:51 | disposition home or self-care (01) | DRG 643 ==
LOC: ER 14:39 → ED HOLD 21:06 → ORTHO 4S 22:46
PROVIDERS: ADMIT Internal Medicine; ATTEND Internal Medicine
DX: E05.20 Thyrotoxicosis with toxic multinodular goiter without thyrotoxic crisis or storm (principal); I50.31 Acute diastolic (congestive) heart failure; Z79.01 Long term (current) use of anticoagulants; Z95.2 Presence of prosthetic heart valve; D50.9 Iron deficiency anemia, unspecified; I48.92 Unspecified atrial flutter; Z20.822 Contact with and (suspected) exposure to COVID-19; I35.0 Nonrheumatic aortic (valve) stenosis; I49.3 Ventricular premature depolarization; D64.9 Anemia, unspecified; Q23.81 Bicuspid aortic valve
CPT/HCPCS: 36415; 70360; 71045; 76536; 80048; 80053; 81003; 82272; 82607; 82728; 82948; 83540; 83550; 83735; 83880; 84439; 84443; 84466; 84484; 84703; 85007; 85025; 85610; 85730; 87081; 87804; 87811; 93005; 93308; 99285; G0378; J1650

== ENCOUNTER 2025-06-13 00:44 | Emergency (ER) | payer OTHER, MEDICAID ==
[~2025-06-13] VITALS: Ht 162.6 cm; Wt 75.5 kg
[~2025-06-13 00:44] MED LIST changes: -BENZ-38 PO; -HYDR-3972 PO; -LOP12.5T PO; +METH-375 PO; +PROP20TA6 PO; +WARF-55 PO; -WARF1TAB83 PO
[2025-06-13 02:15] LABS: MEAN PLATELET VOLUME 7.7 FL (7.4-10.4); RED CELL DISTRIBUTION WIDTH 15.5 % (11.5-14.5)
[2025-06-13 02:36] LABS: CREATININE 0.69 MG/DL (0.40-0.90); PRO BRAIN NATRIURETIC PEPTIDE 719 PG/ML (0-125); TOTAL CARBON DIOXIDE 25.7 MMOL/L (24-32); eCRCL 89 ML/MIN; eGFR > 90 ML/MIN
[2025-06-13 03:28] VITALS: TEMP 98.3
--- NOTE | 2025-06-13 05:29 | ELECTROCARDIOGRAPH REPORT ---
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 Chester Serrano Measurements Intervals [place] Rate: 103 P: 61 [place]: 138 QRS: 11 QRSD: 77 T: 77 QT: 368 QTc: 482 Interpretive Statements Sinus tachycardia Atrial premature complexes Probable left atrial enlargement Consider anterior infarct Electronically Signed On 06-13-2025 11:17:[address] Chester Serrano Please click the below link to view image of tracing.
--- NOTE | 2025-06-13 09:15 | Physician Documentation ---
History of Present Illness ~ Chief Complaint: Palpitations Stated Complaint: CHEST DISCOMFORT Time Seen by MD: 09:11 OK to notify your PCP?: Yes Source: patient, RN/MD, RN notes reviewed, old records Mode of Arrival: POV Exam Limitations: no limitations HPI 44-year-old female presents to the ER with PMH hyperthyroid and open heart surgery. She reports feeling staggering palpitations. She notes that she started getting palpitations after eating sugary foods over the holidays. She notes her symptoms since yesterday happened on and off. She has stopped her hyper thyroid medications for seven days, started back on Friday. He also states that she is currently on blood thinners, and that her current heart doctor is Ivan Carpenter. Patient reports taking 10 mg taking a half dose plus or minus six hours of propanolol off and on. Medication Reconciliation Allergies: Coded Allergies: prochlorperazine (Verified Allergy, Severe, swollen tongue, 05/20/25) Scheduled Aspirin (Children's Aspirin), 81 MG PO Q24H@0830 Cholecalciferol (Vitamin D3) (Vitamin D3), 1 CAP PO DAILY, (Reported) Methimazole (Methimazole), 10 MG PO TID Multivitamin (Multi Vitamin Daily), 1 TAB PO DAILY, (Reported) Propranolol Hcl (Propranolol Hcl), 20 MG PO Q6H Warfarin Sodium (Warfarin Sodium), 1 TAB PO DAILY, (Reported) Past Medical History Past Medical History: *CARDIOVASCULAR*, Atrial Fibrillation, Hyperthyroidism Past Surgical History: other (Aortic valve replacement.) Patient History: Patient reports no known family medical history. Smoking Status: Unknown if ever smoked Review of Systems ROS As stated above in the HPI, otherwise all systems are reviewed and negative. Physical Exam Vital Signs: Temperature: 98.3, Source: Oral, Heart Rate: 83, Respiratory Rate: 16, BP: 105/59, Pulse Oximetry: 100, Weight: 75.500 Oxygen Flow Rate: 0 Physical Exam General: The patient is well developed, well nourished, nontoxic appearing and is in no acute distress. Skin: [place], warm and dry with no rashes. HEENT: Head was normocephalic and atraumatic. Eyes - pupils equal, round, reactive to light and accommodation. Extraocular movements were intact. Conjunctivae were nonicteric. The mouth and oropharynx were clear with moist mucous membranes. There were no pharyngeal exudates or erythema. Neck: Supple and nontender. There was no jugular venous distention, lymphadenopathy, thyromegaly or masses. Chest: Clear to auscultation bilaterally without wheezes, rales or rhonchi. No accessory muscle use. No dullness to percussion. Heart: Slight heart murmur 2/5. Midline scar. Rate regular and rhythmic. S1, S2. No murmurs. Palpation of the chest wall was normal. No rubs or thrills. Abdomen: Soft, nontender and nondistended. Positive bowel sounds. No guarding or rebound. No hepatosplenomegaly or palpable masses. Extremities: No cyanosis, clubbing or edema. The patient moves all extremities. Pulses were equal and symmetric. Neurologic: Motor systems are grossly intact. Psychologic: The patient was oriented to person, place and time. The patient demonstrated appropriate judgement and insight. Progress Progress Note 10:[address] Carpenter about patient who now has a follow up appointment with Dr. Carpenter on 07/04/2025. Results/Orders Results/Orders Vital Signs 06/13/25 06/13/25 06/13/25 06/13/25 00:50 03:28 08:56 10:01 Temp 98.5 98.3 Pulse 89 72 83 81 Resp 16 16 16 18 B/P (MAP) 119/80 112/59 (76) 105/59 (74) 100/65 (77) Pulse Ox 99 98 100 99 O2 Flow Rate 0 0 0 0 Laboratory Tests Test 06/13/25 01:52 06/13/25 06:35 White Blood Count 4.2 L Red Blood Count 4.53 Hemoglobin 11.7 L Hematocrit 35.3 Mean Corpuscular Volume 78.0 Mean Corpuscular Hemoglobin 25.8 L Mean Corpuscular Hemoglobin Concent 33.1 Red Cell Distribution Width 15.5 H Platelet Count 221 Mean Platelet Volume 7.7 Neutrophils (%) (Auto) 60.9 Lymphocytes (%) (Auto) 22.9 Monocytes (%) (Auto) 10.8 Eosinophils (%) (Auto) 4.7 Basophils (%) (Auto) 0.7 Neutrophils # (Auto) 2.6 Lymphocytes # (Auto) 1.0 L Monocytes # (Auto) 0.5 Eosinophils # (Auto) 0.2 Basophils # (Auto) 0.0 CBC Comment Sodium Level 139 Potassium Level 4.0 Chloride Level 105 Carbon Dioxide Level 25.7 Anion Gap 8 Blood Urea Nitrogen 11 Creatinine 0.69 Estimated GFR/1.73 m2 > 90 BUN/Creatinine Ratio 15.9 Glucose Level 103 Calcium Level 8.9 Troponin I High Sensitivity 15 15 Pro-B-Type Natriuretic Peptide 719 H Albumin 3.6 Chemistry Comments Troponin I High Sens Percent Delta 0 Troponin I Hi Sens Absolute Change 0 Ethyl Alcohol Level < 10 EKG/XRAY/CT/US/VASC/MRI EKG : Intepreting Monitor?: Yes Additional Comment ELECTROCARDIOGRAM Patient: CLAY LIU Medical Record: [id number] [facility] : 1980, Age: 44Sex: F Location: ER Patient Status: [facility] ER Service Date/Time: Ordering Physician: CHESTER CALLES Name: ELECTROCARDIOGRAM Technologist: [facility] Test Date: 2025-06-13 Test Time: 00:51:06 Pat Name: CLAY LIU Department: EMERGENCY ROOM Room: Gender: F Consulting It Architect: : 1980 Requested By: CHESTER CALLES Order Number: [id number] Reading MD: Dr. Chester Serrano Measurements Intervals [place] Rate: 103 P: 61 CT: 138 QRS: 11 QRSD: 77 T: 77 QT: 368 QTc: 482 Interpretive Statements Sinus tachycardia Atrial premature complexes Probable left atrial enlargement Consider anterior infarct Electronically Signed On 06-13-2025 11:17:[address] Chester Serrano Please click the below link to view image of tracing. EKG Date and Time:06/13/25 0051 Electronically Signed by: CHESTER SERRANO MD Date and Time: 06/13/25 1117 NO PRIMARY CARE PROVIDER~ cc: ~ Chest X-Ray : Interpreted By: self Views: 1 VIEW Additional Comments DIAGNOSTIC RADIOLOGY Patient: CLAY LIU Medical Record: [id number] [facility] : 1980, Age: 44 Sex: Female Location: ER Patient Status: [facility] ER Service Date/Time: 06/13/25107 Ordering Physician: CHESTER CALLES MD Exam: CHEST,SINGLE VIEW CLINICAL HISTORY: CP TECHNIQUE: Single view of the chest was obtained. COMPARISON: DI CHEST,SINGLE VIEW on DOS: 05/20/25, DI CHEST,TWO VIEWS on DOS: 05/19/25, DI CHEST,SINGLE VIEW on DOS: 04/23/25, DI CHEST,SINGLE VIEW on DOS: 04/22/25, DI CHEST,SINGLE VIEW on DOS: 04/21/25 FINDINGS: The heart size and pulmonary vasculature are normal. The lungs are clear. There are midline sternotomy wires. IMPRESSION: NO ACUTE CARDIOPULMONARY PROCESS. Electronically Signed by:RAUL NAGY MD Date & Time: 06/13/25 112 Dictated by: RAUL NAGY MD Dictation date and time: 06/13/25 0123 Primary Care Provider: NO PRIMARY CARE PROVIDER cc: HCESTER CALLES MD ~ Departure Disposition: 01 HOME / SELF CARE / HOMELESS Impression: Primary Impression: Palpitations Additional Impression: Status post open mitral valve commissurotomy Condition: Stable Discharge Instructions: Palpitations, [id number] Additional Instructions: Follow up with Dr. Jose Carpenter July 04, 2025. Take a whole dose of Lopressor if you are having palpitations. Referrals: NO PRIMARY CARE PROVIDER (PCP) Education Educated: Patient Educated regarding: diagnosis, treatment Signature Scribe Signature: Scribed for Chester Serrano MD by Patricia Victoria . 06/13/25 09:51 Attestation: The note accurately reflects work and decisions made by me.Chester Serrano MD 06/13/25 09:14 CHESTER SERRANO MD Jun 13, 2025 09:15 PATRICIA SERRANO Jun 13, 2025 09:57
[2025-06-13 10:01] VITALS: BP 100/65; PULSE 81; RESP 18; O2SAT 99
--- NOTE | 2025-06-13 11:25 | RADIOLOGY REPORT ---
CLINICAL HISTORY: CP TECHNIQUE: Single view of the chest was obtained. COMPARISON: DI CHEST,SINGLE VIEW on DOS: 05/20/25, DI CHEST,TWO VIEWS on DOS: 05/19/25, DI CHEST,SINGLE VIEW on DOS: 04/23/25, DI CHEST,SINGLE VIEW on DOS: 04/22/25, DI CHEST,SINGLE VIEW on DOS: 04/21/25 FINDINGS: The heart size and pulmonary vasculature are normal. The lungs are clear. There are midline sternotomy wires. IMPRESSION: NO ACUTE CARDIOPULMONARY PROCESS.
== END 2025-06-13 11:09 | disposition home or self-care (01) ==
LOC: ER 00:44
DX: R00.2 Palpitations (principal); I48.91 Unspecified atrial fibrillation; E05.90 Thyrotoxicosis, unspecified without thyrotoxic crisis or storm; Z79.01 Long term (current) use of anticoagulants; Z88.8 Allergy status to other drugs, medicaments and biological substances
CPT/HCPCS: 36415; 71045; 80048; 80320; 83880; 84484; 85025; 93005; 99285